=== PATIENT | male | born 1940 | race Caucasian/White ===

== ENCOUNTER 2020-07-14 15:01 | Outpatient (REF) | payer MEDICARE, SELFPAY ==
--- NOTE | ~2020-07-14 | MR_ITS ---
MRI OF THE BRAIN WITHOUT IV CONTRAST INDICATION: Parkinsonism. COMPARISON: None available. TECHNIQUE: Multiplanar multisequence MR imaging of the brain was obtained without IV contrast. FINDINGS: There is no hydrocephalus, extra-axial surface collection, or herniation. 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 The major flow voids at the skull base are preserved. There is no acute infarct on diffusion-weighted imaging. There is no intracranial hemorrhage on the gradient recalled echo acquisition. The midline structures are normal. The cerebellar tonsils are normally positioned. The craniocervical junction is normal. Osseous marrow signal intensity is homogenous. The visualized soft tissues are unremarkable. MR/MR head/brain wo con IMPRESSION: -There are no acute intracranial findings. 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
== END 2020-07-14 15:02 | disposition home or self-care (01) ==
LOC: HO.MRI 15:01
PROVIDERS: Visit Provider Psychiatry & Neurology Neurology
DX: G20 Parkinson's disease (principal)
CPT/HCPCS: 70551

== ENCOUNTER 2020-07-27 13:13 | Outpatient (REF) | payer MEDICARE, SELFPAY ==
--- NOTE | ~2020-07-27 | US_ITS ---
EXAMINATION: US EXTRACRANIAL CAROTID DUPLEX, BILATERAL CLINICAL INFORMATION: Embolic cerebral infarction. COMPARISON: None TECHNIQUE: Real-time ultrasound and Doppler techniques (integrating B-mode 2-D vascular images, Doppler spectral analysis and color-flow Doppler imaging) were utilized to interrogate the extracranial carotid arteries, the vertebral arteries and proximal subclavian arteries bilaterally. The degree of stenosis is determined by criteria similar to NASCET. FINDINGS: Right Side: 1. There is soft atherosclerotic plaque seen in the bifurcation/proximal ICA region. 2. The common carotid artery PSV proximally is 156 cm/s and distally 119 cm/s. 3. The proximal internal carotid artery velocities are 98.5 cm/s systolic and 12.9 cm/s diastolic. 4. The proximal external carotid artery PSV is 106 cm/s. 5. The vertebral artery shows antegrade flow. 6. The subclavian artery waveforms are normal. Left Side: 1. There is soft atherosclerotic plaque seen in the bifurcation/proximal ICA region. 2. The common carotid artery PSV proximally is 130 cm/s and distally 111 cm/s. 3. The proximal internal carotid artery velocities are 85.0 cm/s systolic and 14.1 cm/s diastolic. 4. The proximal external carotid artery PSV is 110 cm/s. 5. The vertebral artery shows antegrade flow. 6. The subclavian artery waveforms are normal. US/US carotid duplex BI IMPRESSION: 1. RIGHT: No hemodynamically significant stenosis. 2. LEFT: No hemodynamically significant stenosis. 3. There is minimal soft plaque seen in bilateral carotid bulb. 4. Normal antegrade flow seen in both vertebral arteries.
== END 2020-07-27 13:14 | disposition home or self-care (01) ==
LOC: HO.US 13:13
PROVIDERS: Visit Provider Psychiatry & Neurology Neurology
DX: Z86.73 Personal history of transient ischemic attack (TIA), and cerebral infarction without residual deficits (principal)
CPT/HCPCS: 93880

== ENCOUNTER → 2020-09-08 12:40 | Outpatient (REF) | payer MEDICARE, SELFPAY ==
--- NOTE | 2020-09-08 12:46 | CA_ITS ---
Transthoracic Echocardiogram Patient (Last, First, Middle): Supa Colunga, Gender: Male Date of : 1940 Age: 80 Procedure Date: 09/08/2020 Procedure Type: Transthoracic Echocardiogram Location: OP Height: 172.72 cm Weight: 68.04 kg BSA: 1.81 m2 Heart Rate: bpm BP: 117 / 60 mmHg [employer]: JEFFERSON [place] MD: Noah Cuenca MD Manager Office: Hudson Alexis MD Symptoms: EMBOLIC CEREBRAL INFARCTION Study Quality: Fair ECG Rhythm: Sinus Conclusions: - 1. Normal LV systolic function with grade 1 diastolic dysfunction 2. Trivial aortic and mitral regurgitation with mild mitral calcification 3. Normal RV systolic pressure 4. No gross pericardial effusion Findings Left Ventricle Normal left ventricular size, thickness, and systolic function. The visually estimated ejection fraction is between 60-65%. Spectral Doppler is indicative of an impaired relaxation filling pattern. E/E prime ratio is <8, consistent with normal filling pressures. Evidence suggests grade I (mild) diastolic dysfunction. Right Ventricle Normal right ventricular cavity size and systolic function. Atria The left atrium is normal in size. There is lipomatous hypertrophy of the interatrial septum. Interatrial shunt cannot be excluded. The right atrium is normal in size. Aortic Valve The aortic valve was not well visualized. There is no aortic valve stenosis. There is trace (trivial) aortic valve regurgitation. Mitral Valve There is mild anterior mitral leaflet thickening. There is mild mitral annular calcification. There is trace mitral valve regurgitation. There is no mitral valve stenosis. Pulmonic Valve The pulmonic valve was not well visualized. Tricuspid Valve Likely normal tricuspid valve structure and function. There is mild tricuspid valve regurgitation. The right ventricular systolic pressure is normal. The right ventricular systolic pressure is 33 mmHg. Normal right atrial pressure. There is no evidence of pulmonary hypertension. Great Vessels All visible segments of the aorta are normal in size. The pulmonary artery was not well visualized. Venous The inferior vena cava is normal in size and collapses greater than 50% with inspiration. Pericardium/Pleural There is no evidence of pericardial effusion. Prior Study Comparison No prior study available for comparison. Recommendations, Care & Conclusions Recommend contrast study to evaluate intracardiac shunting. Measurements 2D Linear Measurements IVSd: 0.98 0.6-0.9/0.6-1.0 cm LVIDd: 3.96 3.9-5.3/4.2-5.9 cm LVIDd Index: 2.19 2.4-3.2/2.2-3.1 cm/m2 LVIDs: 2.23 2.0-3.6 cm LVPWd: 0.89 0.7-1.1 cm Ao Root: 3.60 2.1-3.5 cm LA Diam: 2.50 2.7-3.8/3.0-4.0 cm LAIDs Index: 1.38 1.5-2.3 cm/m2 LV Mass: 141.50 67-162/88-224 g LV Mass Index: 78.18 43-95/49-115 g/m2 LVOT Diam: 2.00 3.0+(-)1.3 cm 2D Systolic Function EF 4C: 57.60 >55% EF 2C: 63.70 >55% EF BiP: 61.60 >55% Mitral Valve MV Pk E: 0.72 MV PK A: 1.22 MV Decel Time: 197.00 E/A: 0.60 E'Lateral: 8.38 E'Medial: 7.40 E/E' Med: 9.80 E/E' Lat: 8.60 PHT: 58.00 MVA PHT: 3.79 Decel Sheridan: 3.66 Aortic Valve AoV Pk Landon: 1.39 AoV Mn Landon: 0.98 AoV VTI: 0.29 AoV Pk Grad: 8.00 Aov Mn Grad: 4.00 NATALYA Cont.VTI: 2.19 LVOT LVOT Pk Landon: 1.23 LVOT Mn Landon: 0.75 LVOT VTI: 0.20 LVOT Pk Grad: 6.00 LVOT Mn Grad: 3.00 LVOT Diam: 2.00 LVOT Area: 3.14 Diastolic Function MV Pk E: 0.72 MV Pk A: 1.22 E/A: 0.60 E'Medial: 7.40 E/E' Med: 9.80 E' Laterial: 8.38 E/E' Lat: 8.60 Tricuspid Valve TR Pk Landon: 2.73 TR Pk Grad: 30.00 RA Press: 3.00 RVSP: 33.00 Great Vessels Aorta Ao Root-2D: 3.60 2.0-3.7 cm Ao Asc: 3.50 2.1-3.4 cm Ao Arch: 2.10 Updated in Other Vendor System with Status of Final Hudson Alexis MD electronically signed on 09/09/2020 1:57:30 PM with status of Final
--- NOTE | 2020-09-08 13:03 | ECG_ITS ---
Hook-up date: 2020-09-08 13:51:00 Duration: 47:59:00 Test Indications: embolic cerebral infarction Medications: [id number] QRS complexes 8 Ventricular ectopics which represent <1 % of total QRS comp. 465 Supraventricular ectopics which represent <1 % of total QRS comp. * Paced QRS complexs which represent % of total QRS comp. VENTRICULAR ECTOPY 8 Isolated 0 Bigeminal Cycles 0 Couplets 0 Runs 0 Beats in Runs * Beats LONGEST at * BPM at :: -- * Beats FASTEST at * BPM at :: -- SUPRAVENTRICULAR ECTOPY 372 Isolated 25 Couplets 12 Runs 43 Beats in Runs 6 Beats LONGEST at 122 BPM at 22:25:56 2020-09-08 3 Beats FASTEST at 136 BPM at 19:59:27 2020-09-08 HEART RATES 49 MIN at 01:51:21 2020-09-10 77 AVG 144 MAX at 08:25:44 2020-09-10 LONGEST RR 1.3440 secs at 06:29:29 2020-09-10 S-T LEVELS Channel 1 - 128 mm at 13:51:00 2020-09-08 - 128 mm at 13:51:00 2020-09-08 Channel 2 - 128 mm at 13:51:00 2020-09-08 - 128 mm at 13:51:00 2020-09-08 Channel 3 - 128 mm at 03:31:01 -- - 128 mm at 03:31:01 Basic rhythm Normal sinus rhythm No long pause or profound bradycardia Baseline IVCD/BBB Occasional Premature atrial complexes Few short bursts of SVE, probably PAT/SVT No sustained Atrial fibrillation Patient did not report any symptoms in the diary Referred By: Noah Cuenca Overread By: ANILA RICCI MD
== END ==
LOC: HO.CARD 12:40
PROVIDERS: Visit Provider Psychiatry & Neurology Neurology
DX: I63.40 Cerebral infarction due to embolism of unspecified cerebral artery (principal)
CPT/HCPCS: 93225; 93226; 93306

== ENCOUNTER 2021-04-30 08:05 | Outpatient (REF) | payer MEDICARE, SELFPAY ==
[2021-04-30 08:39] LABS: MANUAL DIFF FLAG NO
[2021-04-30 09:04] LABS: Basophils Percent Auto 0.5 % (0-2); Eosinophils Absolute Auto 0.3 X10*3/uL (0.0-0.4); Eosinophils Percent Auto 3.5 % (0-4); Hematocrit 46.4 % (42.0-52.0); Hemoglobin 14.9 g/dl (14.0-18.0); Imm Gran Abs Auto 0.02 X10*3/uL (0.00-0.03); Imm Gran Pct Auto 0.3 % (0.0-0.4); Lymphocytes Absolute Auto 1.8 X10*3/uL (1.2-4.9); Lymphocytes Percent Auto 24.5 % (20-40); Mean Corpuscular HGB Conc 32.1 g/dl (31.0-36.0); Mean Corpuscular Hemoglobin 31.9 pg (27.0-33.0); Mean Corpuscular Volume 99.4 fL (80.0-98.0); Mean Platelet Volume 10.9 fL (9.4-12.4); Monocytes Absolute Auto 0.6 X10*3/uL (0.1-1.2); Monocytes Percent Auto 7.6 % (2-11); Neutrophils Absolute Auto 4.8 x10*3/uL (2.0-8.3); Neutrophils Percent Auto 63.6 % (45-73); Platelet Count 258 X10*3/uL (160-400); Red Blood Count 4.67 X10*6/uL (4.60-5.80); White Blood Count 7.5 X10*3/uL (4.8-10.8)
[2021-04-30 09:35] LABS: Alanine Aminotransferase 16 U/L (0-40); Albumin Level 4.1 g/dL (3.5-5.0); Alkaline Phosphatase 78 U/L (39-117); Anion Gap 11 (12-20); Aspartate Amino Transferase 21 U/L (5-37); Bilirubin Total 0.9 mg/dL (0.0-1.0); Blood Urea Nitrogen 12 mg/dL (9-16); Calcium 9.2 mg/dL (8.4-10.2); Carbon Dioxide 30 mmol/L (22-29); Chloride 105 mmol/L (96-108); Cholesterol 183 mg/dL; Estimated Glomerular Filt Rate > 60; Glucose Fasting 101 mg/dL (60-99); HDL Cholesterol 58 mg/dL; LDL Cholesterol Calculated 100 mg/dl; Sodium 141 mmol/L (135-145); Total Protein 7.1 g/dL (6.5-8.0); Triglycerides 127 mg/dL
[2021-04-30 09:56] LABS: Prostate Specific Antigen Scr 2.54 ng/mL (<0.05-4.0)
== END 2021-04-30 08:06 | disposition home or self-care (01) ==
LOC: HO.LAB 08:05
PROVIDERS: PCP Internal Medicine; Visit Provider Internal Medicine
DX: I10 Essential (primary) hypertension (principal); N40.0 Benign prostatic hyperplasia without lower urinary tract symptoms; Z12.5 Encounter for screening for malignant neoplasm of prostate
CPT/HCPCS: 36415; 80053; 80061; 84153; 85025

== ENCOUNTER 2021-12-14 11:43 | Outpatient (REF) | payer MEDICARE, SELFPAY ==
[2021-12-14 13:30] LABS: MANUAL DIFF FLAG NO
[2021-12-14 13:34] LABS: White Blood Count 7.7 X10*3/uL (4.8-10.8)
[2021-12-14 13:35] LABS: Basophils Absolute Auto 0.1 X10*3/uL (0.0-0.2); Basophils Percent Auto 0.7 % (0-2); Eosinophils Absolute Auto 0.2 X10*3/uL (0.0-0.4); Hematocrit 45.9 % (42.0-52.0); Hemoglobin 14.9 g/dl (14.0-18.0); Imm Gran Abs Auto 0.02 X10*3/uL (0.00-0.03); Imm Gran Pct Auto 0.3 % (0.0-0.4); Lymphocytes Absolute Auto 1.5 X10*3/uL (1.2-4.9); Lymphocytes Percent Auto 19.9 % (20-40); Mean Corpuscular HGB Conc 32.5 g/dl (31.0-36.0); Mean Corpuscular Hemoglobin 31.2 pg (27.0-33.0); Mean Platelet Volume 10.7 fL (9.4-12.4); Monocytes Absolute Auto 0.7 X10*3/uL (0.1-1.2); Monocytes Percent Auto 8.5 % (2-11); Neutrophils Absolute Auto 5.3 x10*3/uL (2.0-8.3); Neutrophils Percent Auto 68.6 % (45-73); Platelet Count 286 X10*3/uL (160-400); Red Blood Count 4.78 X10*6/uL (4.60-5.80)
[2021-12-14 13:50] LABS: Alanine Aminotransferase 15 U/L (0-40); Albumin Level 4.2 g/dL (3.5-5.0); Alkaline Phosphatase 79 U/L (39-117); Anion Gap 13 (12-20); Aspartate Amino Transferase 20 U/L (5-37); Bilirubin Total 0.5 mg/dL (0.0-1.0); Blood Urea Nitrogen 15 mg/dL (9-16); Calcium 9.2 mg/dL (8.4-10.2); Carbon Dioxide 28 mmol/L (22-29); Chloride 103 mmol/L (96-108); Estimated Glomerular Filt Rate > 60; Glucose Random 103 mg/dL (60-115); Potassium 4.8 mmol/L (3.3-5.1); Sodium 139 mmol/L (135-145); Total Protein 7.1 g/dL (6.5-8.0)
[2021-12-14 14:56] LABS: Vitamin B12 419 pg/mL (200-900)
== END 2021-12-14 11:44 | disposition home or self-care (01) ==
LOC: HO.10HDL 11:43
PROVIDERS: Visit Provider Internal Medicine
DX: I10 Essential (primary) hypertension (principal); G20 Parkinson's disease
CPT/HCPCS: 36415; 80053; 82607; 85025

== ENCOUNTER 2021-12-25 08:04 | Outpatient (REF) | payer MEDICARE, SELFPAY ==
[2021-12-25 12:33] LABS: Appearance Urine Clear; Color Urine Yellow; Glucose Urine UA Negative (Negative); Leukocyte Esterase Urine Small (1+) (Negative); Nitrite Urine Negative (Negative); Specific Gravity - Urine 1.015 (1.005-1.025); UMIC TRIGGER UACC YES; Urine Blood Small (1+) (Negative); Urine Ketones Negative (Negative); Urine Protein Trace mg/dL (Neg-Trace)
[2021-12-25 12:36] LABS: Bacteria Urine None Seen (None Seen); Hyaline Casts Urine 0-2 /LPF (0-2); Squamous Epithelial Cell Urine 0-2 /HPF (0-2); UACC Culture Trigger YES
== END 2021-12-25 08:05 | disposition home or self-care (01) ==
LOC: HO.10HDL 08:04
PROVIDERS: Visit Provider Internal Medicine
DX: R31.9 Hematuria, unspecified (principal)
CPT/HCPCS: 81001; 87086

== ENCOUNTER 2022-01-06 10:15 | Emergency (ER) | payer MEDICARE, SELFPAY ==
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
[2022-01-06 10:42] VITALS: BP 153/86; PULSE 93; RESP 17; TEMP 35.9; O2SAT 98; BMI 21.8
[2022-01-06 11:07] VITALS: BP 139/73; PULSE 87
[2022-01-06 11:22] LABS: MANUAL DIFF FLAG NO
[2022-01-06 11:23] LABS: Basophils Absolute Auto 0.1 X10*3/uL (0.0-0.2); Basophils Percent Auto 0.6 % (0-2); Eosinophils Absolute Auto 0.2 X10*3/uL (0.0-0.4); Eosinophils Percent Auto 2.1 % (0-4); Hematocrit 47.3 % (42.0-52.0); Hemoglobin 15.3 g/dl (14.0-18.0); Imm Gran Abs Auto 0.02 X10*3/uL (0.00-0.03); Imm Gran Pct Auto 0.3 % (0.0-0.4); Lymphocytes Absolute Auto 1.9 X10*3/uL (1.2-4.9); Lymphocytes Percent Auto 23.7 % (20-40); Mean Corpuscular HGB Conc 32.3 g/dl (31.0-36.0); Mean Corpuscular Hemoglobin 31.7 pg (27.0-33.0); Mean Corpuscular Volume 97.9 fL (80.0-98.0); Mean Platelet Volume 10.4 fL (9.4-12.4); Monocytes Absolute Auto 0.7 X10*3/uL (0.1-1.2); Monocytes Percent Auto 8.6 % (2-11); Neutrophils Absolute Auto 5.1 x10*3/uL (2.0-8.3); Neutrophils Percent Auto 64.7 % (45-73); Platelet Count 289 X10*3/uL (160-400); Red Blood Count 4.83 X10*6/uL (4.60-5.80); Red Cell Distribution Width 12.8 % (11.0-16.0); White Blood Count 7.8 X10*3/uL (4.8-10.8)
--- NOTE | 2022-01-06 11:25 | ED_ITS ---
HPI - Male Genitourinary General Chief complaint: Urogenital-Male Stated complaint: Blood when urinating Time Seen by Provider: 01/06/22 10:45 Source: patient Mode of arrival: ambulatory Limitations: language barrier (Hungarian-speaking) History of Present Illness HPI Narrative: Patient is an 81-year-old male presents emergency department with his daughter for evaluation of hematuria. Of note hematuria was 1st noted approximately 1 week ago, patient's PCP was contacted, had normal blood work obtained by their report, and was found to have trace hematuria. Reports that he no longer noticed blood in the urine after this point. Today, the blood in the urine reappeared, and reports the presence of clots. Denies fevers, chills, chest pain, shortness of breath, alternative sources of bleeding, nausea, vomiting, abdominal pain, suprapubic pain/pressure, dysuria, urinary frequency/urgency/hesitancy, rectal bleeding, bloody/dark stools. He does and dorsum mild diffuse lower back discomfort which is new. Denies any prior history of kidney stones. Denies anticoagulant usage. Related Data Allergies Allergy/AdvReac Type Severity Reaction Status Date / Time No Known Allergies Allergy Verified 01/06/22 11:05 Review of Systems Review of Systems: Constitutional: No weight loss, fever, chills, weakness or fatigue. Skin: No rash or itching. Cardiovascular: No chest pain, chest pressure or chest discomfort. No palpitations or pedal edema. Respiratory: No shortness of breath, cough or sputum production. Gastrointestinal: No anorexia, nausea, vomiting or diarrhea. No abdominal pain or blood in stool. Genitourinary: Positive hematuria No burning micturition. No urinary frequency or incontinence. Musculoskeletal: Positive back pain. No muscle pain, joint pain or stiffness. Psychiatric: No depression or anxiety. Yes all other systems are reviewed and are negative PMFSH Past Medical History Attestation statement: The following information was validated with the patient. Source: old records reviewed Social History Social History Advance Directives: Yes Advance Directives Information Provided: Yes Advance Directives on File: No Physical Exam Vital Signs: Vital Signs: Last Vital Signs Temp 96.6 F L 01/06/22 10:42 Pulse 87 01/06/22 11:07 Resp 17 01/06/22 10:42 BP 139/73 01/06/22 11:07 Pulse Ox 98 01/06/22 10:42 O2 Del Method 01/06/22 10:42 BMI result Body Mass Index 21.8 Appearance: Alert.?Oriented to person, place and time. No acute distress.?Normal affect. Eyes: Pupils equal, round and reactive to light.? ENT: Pharynx normal.?? Neck: Normal inspection.? Neck supple.?? CVS: Heart sounds normal. Normal heart rate and rhythm.? Pulses normal.?? Respiratory: No respiratory distress.? Lung sounds clear to auscultation bilaterally?? Abdomen: Soft and non-tender. Normoactive bowel sounds. No CVA tenderness? Skin: Skin warm and dry.? Normal skin color.? ?? Extremities: No lower extremity edema.? Neuro: Moves all extremities spontaneously. Sensation intact bilaterally. No focal neuro deficits. Ambulates with normal steady gait. Course Course Course Narrative: Patient is an 81-year-old male with a past medical history of hypertension, Parkinson's who presents emergency department for evaluation of hematuria. He is overall well-appearing. At the time of examination he has a benign abdominal exam without CVA tenderness. Will obtain CBC to evaluate for leukocytosis/ anemia, CMP to evaluate for abnormal electrolytes /abnormal renal function/ abnormal hepatic function, CT of the abdomen and pelvis to evaluate for nephro lithiasis, hydronephrosis, pyelonephritis and Urinalysis. Reevaluation(s) Reevaluation #1: CBC is unremarkable, no evidence of anemia or leukocytosis. CMP is unremarkable, normal renal function. Urinalysis with 3+ blood, trace pyuria, no bacteria seen, does not appear consistent with urinary tract infection at this time. CT reveals no acute abnormalities, there are small bilateral renal stones measuring 0.3 cm without evidence of hydroureternephrosis. At this time suspect this to be the etiology for hematuria, however, cannot completely exclude possibility of bladder cancer which I did discuss with patient and daughter.Advised outpatient follow-up with primary care provider as well as Urology within the next week, given the size these stones they are likely to remain or pass without complication. Reviewed worrisome signs and symptoms to return back to the emergency department for. All questions were answered, patient discharged home in stable condition. Time: 13:05 [facility] - Male Genitourinary Medical Records Attestation: I reviewed the patient's medical records. Lab Data Attestation: I reviewed the patient's lab results. Result diagrams: 01/06/22 11:19 01/06/22 11:19 Labs: Lab Results 01/06/22 01/06/22 01/06/22 Range/Units 11:19 11:19 11:19 WBC 7.8 (4.8-10.8) X10*3/uL RBC 4.83 (4.60-5.80) X10*6/uL Hgb 15.3 (14.0-18.0) g/dl Hct 47.3 (42.0-52.0) % MCV 97.9 (80.0-98.0) fL MCH 31.7 (27.0-33.0) pg MCHC 32.3 (31.0-36.0) g/dl RDW 12.8 (11.0-16.0) % Plt Count 289 (160-400) X10*3/uL MPV 10.4 (9.4-12.4) fL Immature Gran % (Auto) 0.3 (0.0-0.4) % Neut % (Auto) 64.7 (45-73) % Lymph % (Auto) 23.7 (20-40) % Bibb % (Auto) 8.6 (2-11) % Eos % (Auto) 2.1 (0-4) % Baso % (Auto) 0.6 (0-2) % Lymph # (Auto) 1.9 (1.2-4.9) X10*3/uL Bibb # (Auto) 0.7 (0.1-1.2) X10*3/uL Eos # (Auto) 0.2 (0.0-0.4) X10*3/uL Baso # (Auto) 0.1 (0.0-0.2) X10*3/uL Abs Immat Gran (auto) 0.02 (0.00-0.03) X10*3/uL Absolute Neuts (auto) 5.1 (2.0-8.3) x10*3/uL Absolute Nucleated RBC 0.000 (0.0-0.012) X10*3/uL Nucleated RBC % (auto) 0.0 (0.0-0.2) /100WBC Sodium 141 (135-145) mmol/L Potassium 4.8 (3.3-5.1) mmol/L Chloride 103 (96-108) mmol/L Carbon Dioxide 28 (22-29) mmol/L Anion Gap 15 (12-20) BUN 14 (9-16) mg/dL Creatinine 0.92 (0.5-1.4) mg/dL Estim Creat Clear Calc 57.7 Estimated GFR > 60 Random Glucose 106 (60-115) mg/dL Calcium 9.3 (8.4-10.2) mg/dL Total Bilirubin 0.8 (0.0-1.0) mg/dL AST 23 (5-37) U/L ALT 19 (0-40) U/L Alkaline Phosphatase 79 (39-117) U/L Total Protein 7.5 (6.5-8.0) g/dL Albumin 4.4 (3.5-5.0) g/dL Urine Color Urine Appearance Urine pH (5.0-9.0) Ur Specific [place] (1.005-1.025) Urine Protein (Neg-Trace) mg/dL Urine Glucose (UA) (Negative) mg/dL Urine Ketones (Negative) mg/dL Urine Blood (Negative) Urine Nitrite (Negative) Ur Leukocyte Esterase (Negative) Urine RBC (0-2) /HPF Urine WBC (0-5) /HPF Ur Squamous Epith Cells (0-2) /HPF Urine Bacteria (None Seen) Hyaline Casts (0-2) /LPF Blood Type O Negative Antibody Screen NEGATIVE 01/06/22 Range/Units 11:21 WBC (4.8-10.8) X10*3/uL RBC (4.60-5.80) X10*6/uL Hgb (14.0-18.0) g/dl Hct (42.0-52.0) % MCV (80.0-98.0) fL MCH (27.0-33.0) pg MCHC (31.0-36.0) g/dl RDW (11.0-16.0) % Plt Count (160-400) X10*3/uL MPV (9.4-12.4) fL Immature Gran % (Auto) (0.0-0.4) % Neut % (Auto) (45-73) % Lymph % (Auto) (20-40) % Bibb % (Auto) (2-11) % Eos % (Auto) (0-4) % Baso % (Auto) (0-2) % Lymph # (Auto) (1.2-4.9) X10*3/uL Bibb # (Auto) (0.1-1.2) X10*3/uL Eos # (Auto) (0.0-0.4) X10*3/uL Baso # (Auto) (0.0-0.2) X10*3/uL Abs Immat Gran (auto) (0.00-0.03) X10*3/uL Absolute Neuts (auto) (2.0-8.3) x10*3/uL Absolute Nucleated RBC (0.0-0.012) X10*3/uL Nucleated RBC % (auto) (0.0-0.2) /100WBC Sodium (135-145) mmol/L Potassium (3.3-5.1) mmol/L Chloride (96-108) mmol/L Carbon Dioxide (22-29) mmol/L Anion Gap (12-20) BUN (9-16) mg/dL Creatinine (0.5-1.4) mg/dL Estim Creat Clear Calc Estimated GFR Random Glucose (60-115) mg/dL Calcium (8.4-10.2) mg/dL Total Bilirubin (0.0-1.0) mg/dL AST (5-37) U/L ALT (0-40) U/L Alkaline Phosphatase (39-117) U/L Total Protein (6.5-8.0) g/dL Albumin (3.5-5.0) g/dL Urine Color Red A Urine Appearance Clear Urine pH 7.0 (5.0-9.0) Ur Specific [place] 1.015 (1.005-1.025) Urine Protein Trace (Neg-Trace) mg/dL Urine Glucose (UA) Negative (Negative) mg/dL Urine Ketones Negative (Negative) mg/dL Urine Blood Large (3+) H (Negative) Urine Nitrite Negative (Negative) Ur Leukocyte Esterase Trace H (Negative) Urine RBC >20 H (0-2) /HPF Urine WBC 0-5 (0-5) /HPF Ur Squamous Epith Cells 0-2 (0-2) /HPF Urine Bacteria None Seen (None Seen) Hyaline Casts 0-2 (0-2) /LPF Blood Type Antibody Screen Discharge Plan Discharge Clinical Impression: Hematuria, Bilateral renal stones Patient Disposition: Home, Self-Care Instructions: Kidney Stones (ED), Hematuria (ED) Additional Instructions: As we discussed, there is no evidence for urinary tract infection at this time. You were found to have kidney stones, based on their size they should be able to be passed without complication. We also discussed the possibility of bladder cancer as a cause for blood in the urine, please contact the urology office to arrange for a follow-up visit within the next week, you have been given their contact information Additionally, please follow-up with primary care provider within the next week. Return back to the emergency department with any new or worsening symptoms or concerns. Referrals: Jeremie Finley MD [Physician] - Vini Borges MD [Primary Care Provider] - Interventions: ED Discharge Assessment Last Done: 01/06/22 13:22 Discharge Date/Time: 01/06/22 13:26
[2022-01-06 11:35] LABS: Appearance Urine Clear; Color Urine Red; Glucose Urine UA Negative (Negative); Leukocyte Esterase Urine Trace (Negative); Nitrite Urine Negative (Negative); Specific Gravity - Urine 1.015 (1.005-1.025); UMIC TRIGGER UACC YES; Urine Blood Large (3+) (Negative); Urine Ketones Negative (Negative); Urine Protein Trace mg/dL (Neg-Trace)
[2022-01-06 11:38] LABS: Bacteria Urine None Seen (None Seen); Hyaline Casts Urine 0-2 /LPF (0-2); RBC Urine >20 /HPF (0-2); Squamous Epithelial Cell Urine 0-2 /HPF (0-2); WBC Urine 0-5 /HPF (0-5)
[2022-01-06 11:43] LABS: Alanine Aminotransferase 19 U/L (0-40); Albumin Level 4.4 g/dL (3.5-5.0); Alkaline Phosphatase 79 U/L (39-117); Anion Gap 15 (12-20); Aspartate Amino Transferase 23 U/L (5-37); Bilirubin Total 0.8 mg/dL (0.0-1.0); Blood Urea Nitrogen 14 mg/dL (9-16); Calcium 9.3 mg/dL (8.4-10.2); Carbon Dioxide 28 mmol/L (22-29); Chloride 103 mmol/L (96-108); Creatinine Clr Calc Pharmacy 57.7; Estimated Glomerular Filt Rate > 60; Glucose Random 106 mg/dL (60-115); Potassium 4.8 mmol/L (3.3-5.1); Sodium 141 mmol/L (135-145); Total Protein 7.5 g/dL (6.5-8.0)
== END 2022-01-06 13:26 | disposition home or self-care (01) ==
PROVIDERS: Nurse Practitioner Family; Emergency Provider Emergency Medicine; PCP Internal Medicine
DX: R31.9 Hematuria, unspecified (principal); N20.0 Calculus of kidney; M54.50 Low back pain, unspecified
CPT/HCPCS: 36415; 74176; 80053; 81001; 85025; 86850; 86900; 86901; 99283; 99284

== ENCOUNTER → 2022-01-28 15:25 | Outpatient (BNVA) | payer MEDICARE, SELFPAY | PROVIDERS: PCP Internal Medicine; Visit Provider Urology | DX: R31.0 Gross hematuria (principal); N40.0 Benign prostatic hyperplasia without lower urinary tract symptoms | CPT/HCPCS: 99202 ==

== ENCOUNTER → 2022-02-05 12:43 | Outpatient (BNVA) | payer MEDICARE, SELFPAY | PROVIDERS: PCP Internal Medicine; Visit Provider Urology | DX: R31.0 Gross hematuria (principal); N40.0 Benign prostatic hyperplasia without lower urinary tract symptoms; N20.0 Calculus of kidney | CPT/HCPCS: 52000; 99212; J1885 ==

== ENCOUNTER 2022-05-28 17:32 | Emergency (ER) | payer MEDICARE, SELFPAY ==
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
--- NOTE | ~2022-05-28 | XR_ITS ---
EXAMINATION: XR CHEST CLINICAL INFORMATION: Fall COMPARISON: None available. TECHNIQUE: Frontal view of the chest was obtained. FINDINGS: No consolidation, pneumothorax, or pleural effusion. Cardiac and mediastinal contours are normal. Pulmonary vasculature is unremarkable. Calcific atherosclerosis is present in the thoracic aorta. Degenerative disc disease is evident in the thoracic spine. No acute osseous findings. XR/XR chest 1V IMPRESSION: No acute pulmonary findings.
--- NOTE | ~2022-05-28 | CT_ITS ---
EXAMINATION: CT HEAD WITHOUT CONTRAST CLINICAL INFORMATION: Fall one week prior. Off balance. COMPARISON: 07/14/2020 TECHNIQUE: Contiguous axial imaging was performed from the skull base to vertex without intravenous contrast. This CT examination was performed using dose optimization techniques as appropriate, variously including the following: * Automated exposure control * Adjustment of mA and/or kV according to patient size (this includes techniques or standardized protocols for targeted exams where dose is matched to indication/reason for exam; i.e. extremities or head) Use of iterative reconstruction technique DLP: 604 mGy-cm. FINDINGS: There is no evidence of acute intracranial hemorrhage or territorial infarction. No abnormal mass effect or midline shift is seen. Burt to white matter differentiation is well preserved. No extra-axial fluid collections are identified. No hydrocephalus. Proportional prominence of the ventricles and sulcal spaces is consistent with moderate volume loss. Patchy periventricular and deep white matter hypoattenuation is consistent with mild small vessel ischemic changes. 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 No acute osseous or soft tissue abnormality. Lucent lesion measuring 2 cm at the high left parietal calvarium. The mastoid air cells and visualized portions of the paranasal sinuses are well aerated. CT/CT head/brain wo IV con IMPRESSION: 1. No acute intracranial pathology. Chronic volume loss with small vessel ischemic change. 2. Lucent lesion measuring 2 cm at the high left parietal calvarium. This is likely without change from previous MRI.
--- NOTE | ~2022-05-28 | CT_ITS ---
EXAMINATION: CT HIP WITHOUT CONTRAST, RIGHT CLINICAL INFORMATION: Right hip pain. Rule out occult fracture. COMPARISON: 05/28/2022 and 01/06/2022 TECHNIQUE: Multidetector volumetric imaging of the right hip performed without IV contrast. Coronal and sagittal reformatted images are obtained and reviewed. This CT examination was performed using dose optimization techniques as appropriate, variously including the following: *Automated exposure control *Adjustment of mA and/or kV according to patient size (this includes techniques or standardized protocols for targeted exams where dose is matched to indication/reason for exam; i.e. extremities or head) *Use of iterative reconstruction technique DLP: 226 mGy-cm FINDINGS: No acute fracture or dislocation. The right hip is well aligned. Mild narrowing of the joint space with osteophyte formation. There is no acute right pelvic fracture. Appropriate alignment of the pubic symphysis and right sacroiliac joint. There is evidence of a healed right iliac bone fracture with residual ossific gap within the iliac wing. This is chronic. There is full appearance of the right iliopsoas muscle as it tracks along the right iliac bone. This is increased from 01/06/2022. This could be provider service representative of a hematoma. Distended bladder without wall thickening. Enlarged prostate. No lymphadenopathy. CT/CT hip RT wo IV con IMPRESSION: 1. No acute fracture or malalignment. Mild degenerative changes of the right hip. 2. There is full appearance of the right iliopsoas muscle as it tracks along the right iliac bone. This is increased from 01/06/2022. This could be provider service representative of a hematoma.
[2022-05-28 18:44] VITALS: BP 142/83; PULSE 94; RESP 19; TEMP 37.4; O2SAT 98; BMI 21.2
--- NOTE | 2022-05-28 18:47 | ED_ITS ---
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 previous MRI. Dictated By:Thierry Steven MDSigned By:<Electronically signed by Thierry Steven MD in OV>05/28/222326 CT hip RT wo IV con IMPRESSION: 1. No acute fracture or malalignment. Mild degenerative changes of the right hip. 2. There is full appearance of the right iliopsoas muscle as it tracks along the right iliac bone. This is increased from 01/06/2022. This could be insurance healthcare representative of a hematoma. Dictated By:Thierry Steven MD <Nilson Curiel MD - Last Filed: 05/29/22 00:03> Discharge Plan Discharge Clinical Impression: Hematoma of iliopsoas muscle <SHANTANU Green - Last Filed: 05/28/22 18:52> Patient Disposition: Home, Self-Care <SHANTANU Green - Last Filed: 05/28/22 18:52> Instructions: Hematoma (ED) <SHANTANU Green - Last Filed: 05/28/22 18:52> Additional Instructions: Your blood work was normal. Your urinalysis was normal with no evidence for infection. Your COVID-19 and influenza were negative. The x-ray of your right hip and pelvis revealed no broken bone/acute fracture. The CT scan of your brain revealed no acute findings to explain your off balance problem. The CT scan of your hip revealed no hip fracture however you do have a hematoma to the iliopsoas muscle (your blood into this muscle), this is most likely caused by using the exercise bike cannot by you lying on the floor. It sometimes takes 4-6 weeks for a hematoma to heal completely. Use your walker for the next 2-4 weeks as discussed. Take Tylenol (acetaminophen) 500 mg pills, 2 pills every 6 hours as needed for pain. Follow-up with your doctor in 2 days. Please return to the emergency department if your symptoms get worse or if you develop any symptoms that are concerning to you. <SHANTANU Green - Last Filed: 05/28/22 18:52> Prescriptions: No Action enalapril maleate 10 mg tablet 10 mg PO DAILY carbidopa-levodopa 25-100 mg tablet 1 tab PO TID dutasteride-tamsulosin [Jaclyn] 0.5-0.4 mg capsule, ER multiphase 24 hr 1 cap PO DAILY Qty: 90 3RF <SHANTANU Green - Last Filed: 05/28/22 18:52>
--- NOTE | 2022-05-28 18:49 | ECG_ITS ---
Test Reason : WEAKNESS Blood Pressure : / mmHG Vent. Rate : 086 BPM Atrial Rate : 086 BPM P-R Int : 138 ms QRS Dur : 122 ms QT Int : 366 ms P-R-T Axes : 078 -58 081 degrees QTc Int : 437 ms Normal sinus rhythm Left anterior fascicular block Left ventricular hypertrophy with QRS widening and repolarization abnormality ( R in aVL , Roberto Carlos product ) Abnormal ECG No previous ECGs available Referred By: Kaur Quinones Electronically Signed By:ANILA RICCI MD
[2022-05-28 19:40] LABS: MANUAL DIFF FLAG NO
[2022-05-28 19:41] LABS: Basophils Absolute Auto 0.1 X10*3/uL (0.0-0.2); Basophils Percent Auto 0.3 % (0-2); Eosinophils Absolute Auto 0.1 X10*3/uL (0.0-0.4); Eosinophils Percent Auto 0.7 % (0-4); Hemoglobin 13.3 g/dl (14.0-18.0); Imm Gran Pct Auto 0.6 % (0.0-0.4); Lymphocytes Absolute Auto 1.9 X10*3/uL (1.2-4.9); Mean Corpuscular HGB Conc 32.4 g/dl (31.0-36.0); Mean Corpuscular Volume 95.6 fL (80.0-98.0); Mean Platelet Volume 9.6 fL (9.4-12.4); Monocytes Absolute Auto 1.2 X10*3/uL (0.1-1.2); Monocytes Percent Auto 6.9 % (2-11); Neutrophils Absolute Auto 14.1 x10*3/uL (2.0-8.3); Neutrophils Percent Auto 80.5 % (45-73); Platelet Count 535 X10*3/uL (160-400); Red Blood Count 4.29 X10*6/uL (4.60-5.80); White Blood Count 17.5 X10*3/uL (4.8-10.8)
[2022-05-28 19:57] LABS: IDNOW Serial# BCCEAD1C; Influenza A Negative (Negative); Influenza B2 Negative (Negative)
[2022-05-28 19:58] LABS: COVID-19 Test Negative (Negative); IDNOW Serial# 08D9AD1C
[2022-05-28 20:06] LABS: Lactic Acid 1.1 mmol/L (0.5-2.0)
[2022-05-28 20:10] LABS: Alanine Aminotransferase 6 U/L (0-40); Albumin Level 3.5 g/dL (3.5-5.0); Alkaline Phosphatase 69 U/L (39-117); Anion Gap 15 (12-20); Aspartate Amino Transferase 18 U/L (5-37); Bilirubin Total 0.6 mg/dL (0.0-1.0); Blood Urea Nitrogen 17 mg/dL (9-16); Calcium 8.8 mg/dL (8.4-10.2); Carbon Dioxide 25 mmol/L (22-29); Chloride 99 mmol/L (96-108); Creatinine Clr Calc Pharmacy 54.4; Estimated Glomerular Filt Rate > 60; Glucose Random 107 mg/dL (60-115); Magnesium 2.2 mg/dL (1.6-2.6); Potassium 4.6 mmol/L (3.3-5.1); Sodium 134 mmol/L (135-145); Total Protein 6.9 g/dL (6.5-8.0)
[2022-05-28 20:16] LABS: B Type Natriuretic Peptide 36 pg/mL (<100)
[2022-05-28 20:17] LABS: Troponin-I High Sensitivity < 3.5 ng/L (<3.5-35.0)
[2022-05-28 21:15] VITALS: BP 127/58; PULSE 96; RESP 17; TEMP 36.4; O2SAT 95
[2022-05-28] MEDS: 0.9 % Sodium Chloride 1,000 ML 999 ML IV (21:39)
[2022-05-28 22:45] LABS: Appearance Urine Clear; Color Urine Yellow; Glucose Urine UA Negative (Negative); Leukocyte Esterase Urine Negative (Negative); Nitrite Urine Negative (Negative); PH 6.5 (5.0-9.0); Specific Gravity - Urine <= 1.005 (1.005-1.025); UMIC TRIGGER UACC YES; Urine Blood Small (1+) (Negative); Urine Ketones Negative (Negative); Urine Protein Negative (Neg-Trace)
[2022-05-28 22:58] LABS: Bacteria Urine None Seen (None Seen); Hyaline Casts Urine 0-2 /LPF (0-2); RBC Urine 0-2 /HPF (0-2); Squamous Epithelial Cell Urine 0-2 /HPF (0-2); WBC Urine 0-5 /HPF (0-5)
== END 2022-05-29 00:38 | disposition home or self-care (01) ==
PROVIDERS: Physician Assistant; Emergency Provider Emergency Medicine Emergency Medical Services; PCP Internal Medicine
DX: R31.9 Hematuria, unspecified (principal); R53.1 Weakness; R06.02 Shortness of breath; R26.2 Difficulty in walking, not elsewhere classified; R50.9 Fever, unspecified; M25.551 Pain in right hip; R51.9 Headache, unspecified; Z20.822 Contact with and (suspected) exposure to COVID-19; Z20.828 Contact with and (suspected) exposure to other viral communicable diseases; Z79.899 Other long term (current) drug therapy
CPT/HCPCS: 70450; 71045; 73502; 73700; 80053; 81001; 82550; 83605; 83735; 83880; 84484; 85025; 87040; 87502; 87635; 93005; 96360; 96361; 99284

== ENCOUNTER 2022-06-13 14:37 | Outpatient (REF) | payer MEDICARE, SELFPAY | END 2022-06-13 14:38 | disposition home or self-care (01) | LOC: HO.LAB 14:37 | PROVIDERS: PCP Internal Medicine; Visit Provider Urology | DX: R31.0 Gross hematuria (principal); N40.0 Benign prostatic hyperplasia without lower urinary tract symptoms; N20.0 Calculus of kidney | CPT/HCPCS: 51798; 88121; 99212 ==

== ENCOUNTER 2022-08-16 10:05 | Outpatient (REF) | payer MEDICARE, SELFPAY ==
--- NOTE | ~2022-08-16 | XR_ITS ---
EXAMINATION: XR CHEST CLINICAL INFORMATION: Hypertension. Weight loss. COMPARISON: Previous chest x-ray May 2022 TECHNIQUE: 2 views of the chest were obtained. FINDINGS: The cardiac and mediastinal contours are normal. The lungs are are. The lungs are well-inflated suggestive of COPD. No pleural effusion or pneumothorax. Degenerative changes of the spine. XR/XR chest 2V IMPRESSION: Well-inflated lungs. No evidence for acute disease in the chest.
[2022-08-16 10:26] LABS: MANUAL DIFF FLAG NO
[2022-08-16 10:55] LABS: Appearance Urine Clear; Color Urine Yellow; Glucose Urine UA Negative (Negative); Leukocyte Esterase Urine Negative (Negative); Nitrite Urine Negative (Negative); Specific Gravity - Urine 1.015 (1.005-1.025); UMIC TRIGGER UA YES; Urine Blood Small (1+) (Negative); Urine Ketones Negative (Negative); Urine Protein Negative (Neg-Trace)
[2022-08-16 10:56] LABS: Basophils Absolute Auto 0.1 X10*3/uL (0.0-0.2); Basophils Percent Auto 0.7 % (0-2); Eosinophils Absolute Auto 0.2 X10*3/uL (0.0-0.4); Eosinophils Percent Auto 2.7 % (0-4); Hemoglobin 14.4 g/dl (14.0-18.0); Imm Gran Abs Auto 0.02 X10*3/uL (0.00-0.03); Imm Gran Pct Auto 0.3 % (0.0-0.4); Lymphocytes Absolute Auto 1.6 X10*3/uL (1.2-4.9); Lymphocytes Percent Auto 22.9 % (20-40); Mean Corpuscular Hemoglobin 31.6 pg (27.0-33.0); Mean Corpuscular Volume 98.9 fL (80.0-98.0); Monocytes Absolute Auto 0.5 X10*3/uL (0.1-1.2); Neutrophils Absolute Auto 4.4 x10*3/uL (2.0-8.3); Neutrophils Percent Auto 65.4 % (45-73); Platelet Count 265 X10*3/uL (160-400); Red Blood Count 4.55 X10*6/uL (4.60-5.80); Red Cell Distribution Width 13.9 % (11.0-16.0); White Blood Count 6.8 X10*3/uL (4.8-10.8)
[2022-08-16 11:02] LABS: Bacteria Urine None Seen (None Seen); Hyaline Casts Urine 0-2 /LPF (0-2); Squamous Epithelial Cell Urine 0-2 /HPF (0-2); WBC Urine 0-5 /HPF (0-5)
[2022-08-16 11:21] LABS: Alanine Aminotransferase 17 U/L (0-40); Albumin Level 4.1 g/dL (3.5-5.0); Alkaline Phosphatase 87 U/L (39-117); Anion Gap 11 (12-20); Aspartate Amino Transferase 20 U/L (5-37); Bilirubin Total 0.9 mg/dL (0.0-1.0); Blood Urea Nitrogen 14 mg/dL (9-16); Calcium 9.3 mg/dL (8.4-10.2); Carbon Dioxide 29 mmol/L (22-29); Chloride 105 mmol/L (96-108); Cholesterol 176 mg/dL; Estimated Glomerular Filt Rate > 60; Glucose Random 104 mg/dL (60-115); Potassium 4.9 mmol/L (3.3-5.1); Sodium 140 mmol/L (135-145); Total Protein 7.2 g/dL (6.5-8.0)
== END 2022-08-16 10:06 | disposition home or self-care (01) ==
LOC: HO.LAB 10:05
PROVIDERS: PCP Internal Medicine; Visit Provider Internal Medicine
DX: I10 Essential (primary) hypertension (principal); R63.4 Abnormal weight loss; J98.4 Other disorders of lung
CPT/HCPCS: 36415; 71046; 80053; 81001; 82465; 85025

== ENCOUNTER 2022-11-14 08:21 | Outpatient (REF) | payer MEDICARE, SELFPAY ==
[2022-11-14 12:36] LABS: PSA,Total (Free>4and<10) 1.48 ng/mL (0.00-4.00)
== END 2022-11-14 08:22 | disposition home or self-care (01) ==
LOC: HO.10HDL 08:21
PROVIDERS: Visit Provider Urology
DX: Z12.5 Encounter for screening for malignant neoplasm of prostate (principal); N40.0 Benign prostatic hyperplasia without lower urinary tract symptoms
CPT/HCPCS: 36415; 84153; 88121

== ENCOUNTER 2022-11-20 09:55 | Outpatient (AMB) | payer MEDICARE, SELFPAY ==
[2022-11-20 10:02] VITALS: BMI 21.3
--- NOTE | 2022-11-20 10:02 | MHC.OFFVIS ---
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 States he has had this bump on his IP joint for approx 1 yr now. No injury he can recall. Patient states this cause him no pain or discomfort. Patient has noticed it has increase in size and would like to discuss removal of bump. Denies numbness, tingling or locking of fingers. 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 He has had a cyst on his IP joint for about a year now. He denies any injury. He has no pain or discomfort. He has noticed it has increased in size but has been steady recently. He denies any numbness or paresthesia. He states that the cyst was never ruptured or drained in the past. [facility] Social History (Updated 11/20/22 @ 10:09 by ELIZA Burden) Current occupational status: disabled Current occupation: rt hand Review of Systems Const All systems reviewed & are unremarkable except as noted in HPI and below Physical Exam Vital Signs: BMI result Body Mass Index 21.3 Const General: cooperative, healthy appearing and no acute distress Orientation/consciousness: patient oriented x3 HEENT Head: Yes normocephalic and Yes atraumatic Eyes EOM: EOMs intact bilaterally Resp Effort & Inspection: normal respiratory effort and able to speak in complete sentences Cardio Jugular venous distension: no JVD Skin General skin exam: turgor normal, ecchymosis (No) and erythema (No) Rashes: no rashes Trauma: no lacerations or abrasions Neuro Other: Vascular: Cap refill brisk General: patient oriented x3 Extrem Other: Evaluation of right Upper Extremity: Neuro: Median, ulnar, radial nerves motor and sensory grossly intact. Vascular: Cap refill brisk. ROM: Can bring fingers closed to a fist and back out to full or nearly full extension. No locking or catching Skin: No lacerations or abrasions. General: No eccymosis. No erythema or evidence of infection. Has a fairly large mucous cyst, measuring about 1.5 cm in diameter, across the dorsal aspect of his right thumb distal phalanx and IP joint. Appears to be fluid filled. No surrounding erythema, no drainage. The area is not particularly tender. Good active range of motion of the thumb including the IP joint. Psych Appearance: grossly normal Affect: normal affect Attitude: cooperative Assessment & Plan Assessment & Plan (1) Mucous cyst of digit of right hand: Code(s): M67.441 - Ganglion, right hand Plan 1. 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 I educated the patient and his daughter about this condition We discussed operative and non-operative treatment options. I am recommending surgery and he wishes to proceed with surgery. The risks and benefits of operative treatment were discussed with the patient and the patient wishes to proceed with surgery. These risks include, but are not limited to risk of damage to blood vessels, nerves, tendons, infection, recurrence, incomplete relief of preoperative symptoms, persistent pain, possible need for further surgery and the risks associated with regional blocks and anesthesia. The plan is to take the patient to the operating room sometime in the next few weeks for the following procedures: 1. Right thumb mucous cyst excision under local. All of the preoperative paperwork including the consent was filled out today. All the patient's questions were answered. The patient understands that they will be contacted by our crew scheduler soon to schedule this procedure Scribed for Dr. Amanda Molina by Jr Patel, director of medical review, on 11/20/2022. I, Dr. Amanda Molina, have personally reviewed and agree with the information entered by the scribe. Coding Level of Care Code New Pt Level 4 (71050) Diagnoses Mucous cyst of digit of right hand M67.441
== END 2022-11-20 10:23 | disposition home or self-care (01) ==
PROVIDERS: PCP Internal Medicine; Visit Provider Orthopaedic Surgery
DX: M67.441 Ganglion, right hand (principal)
CPT/HCPCS: 99204

== ENCOUNTER → 2022-11-20 09:55 | Outpatient (BNVA) | payer MEDICARE, SELFPAY | PROVIDERS: PCP Internal Medicine; Visit Provider Orthopaedic Surgery ==

== ENCOUNTER 2022-12-26 08:08 | Outpatient (AMB) | payer MEDICARE, SELFPAY ==
--- NOTE | 2022-12-26 08:12 | A.OFFVIS_ITS ---
Intake Intake Visit Reasons: 6m/labs/hematuria Intake Note: Patient presents today for a follow-up on Hematuria, Labs Results: Meds- None Allergies to Antibiotic- No Known Allergies Blood Thinner- None PSA- 1.48 ng/mL 11/14/2022 Worm Grower Required: No Accompanied by: Self / Same As Patient Allergies No Known Allergies Allergy (Verified 01/07/23 15:20) HPI HPI Comments History of Present Illness Details Supa is an 82-year-old male who presents today to the office for a follow-up. 12/26/22? He is followed today for hematuria. He prior cysto, 01/2022 which was wnL, Jaclyn was started at that time. He was last seen by me on 06/13/22 for BPH. He is presents with his daughter. He states that he gets up 3 times at night to urinate. He denies any dysuria, or gross hematuria. The patient has been compliant with his meds daily Jaclyn 04 mg. In review of his chart he does have right kidney stone 3 mm noted on prior CAT scan imaging. I have discussed AUA guidelines recommendations for PSA screening. I reviewed the PSA results from 11/14/22 revealed 1.48. Review of charts: office cystoscopy on 02/05/22 which was negative for suspicious bladder lesion.? 06/13/22--JEFFRY: Prostate exam: Prostate was enlarged, no hard, irregular areas palpated.? 12/26/22: Evaluation today?UA?Leukocyte: negative; blood: 1 +. 12/26/22: Plan: Continue jayln Monitor right kidney stone Renal US in 6 months. Will hold on PSA screening based on AUA guidelines. [facility] Social History Current occupational status: disabled Current occupation: rt hand Review of Systems Const All systems reviewed & are unremarkable except as noted in HPI and below Reports no additional complaints Eyes Reports no additional complaints ENT Denies neck pain Card Denies leg edema Resp Denies cough GI Denies constipation Musc Reports no additional complaints and Denies neck pain Skin/Breast Denies rash and Denies unusual bruising Neuro Reports no additional complaints Psych Reports no additional complaints Endo Reports no additional complaints Mikey/Lymph Reports no additional complaints Aller/Immun Reports no additional complaints Physical Exam Const General: healthy appearing, no acute distress and well developed Orientation/consciousness: patient oriented x3 HEENT Head: Yes normocephalic and Yes atraumatic Eyes Conjunctivae: conjunctivae normal Neck Neck: Yes normal visual inspection Chest Chest palpation & inspection: normal inspection of the chest Resp Effort & Inspection: normal respiratory effort Cardio Rate: regular rate GI Inspection: Yes normal to inspection Palpation (GI): Soft to palpation Skin General skin exam: no rashes or lesions noted Neuro General: patient oriented x3 Extrem General: No pedal edema Psych Appearance: grossly normal Affect: normal affect Results AMB Urinalysis, Automated UA Leukoctes 0 Sage/uL Last Edit by JOYCELYN Herrera on 12/26/22 08:40 UA Nitrite Negative Last Edit by JOYCELYN Herrera on 12/26/22 08:40 UA Urobilinogen 0.2 mg/dL Last Edit by JOYCELYN Herrera on 12/26/22 08:4 0 UA Protein 0 mg/dL Last Edit by JOYCELYN Herrera on 12/26/22 08:40 UA pH 6.5 Last Edit by JOYCELYN Herrera on 12/26/22 08:40 UA Blood 25 Hector/uL Last Edit by JOYCELYN Herrera on 12/26/22 08:40 1+ Denzel Avery 12/26/22 08:40 UA Specific Coram 1.015 Last Edit by JOYCELYN Herrera on 12/26/22 08: 40 UA Ketone Negative Last Edit by JOYCELYN Herrera on 12/26/22 08:40 UA Bilirubin 0 mg/dL Last Edit by JOYCELYN Herrera on 12/26/22 08:40 UA Glucose 0 mg/dL Last Edit by JOYCELYN Herrera on 12/26/22 08:40 Results Reviewed Results Reviewed: Laboratory Last Values Urine pH (Auto) 6.5 12/26/22 08:38 Specific Coram (Auto) 1.015 12/26/22 08:38 Urine Protein (Auto) 0 mg/dL 12/26/22 08:38 Glucose (UA)(Auto) 0 mg/dL 12/26/22 08:38 Urine Ketones (Auto) Negative 12/26/22 08:38 Urine Blood (Auto) 25 Hector/uL 12/26/22 08:38 Urine Nitrite (Auto) Negative 12/26/22 08:38 Urine Bilirubin (Auto) 0 mg/dL 12/26/22 08:38 Urine Urobilinogen (Auto) 0.2 mg/dL 12/26/22 08:38 Leukocyte Esterase (Auto) 0 Sage/uL 12/26/22 08:38 Assessment & Plan Assessment & Plan (1) BPH (benign prostatic hyperplasia): Code(s): N40.0 - Benign prostatic hyperplasia without lower urinary tract symptoms (2) Kidney calculus: Code(s): N20.0 - Calculus of kidney (3) Microscopic hematuria: Code(s): R31.29 - Other microscopic hematuria Plan Continue jayln Monitor right kidney stone Renal US in 6 months. Will hold on PS screening based on AUA guidelines. Orders: Orders US renal BI 5 Months R31.29 - Other microscopic hematuria, N20.0 - Calculus of kidney AMB Urinalysis Automated 12/26/22 Z13.9 - Encounter for screening, unspecified Patient Instructions: The patient had an opportunity to ask questions regarding treatment plan. All questions were answered. Imaging, Laboratory studies and physical exam results were discussed and reviewed in detail. No major barriers to understanding were identified. The patient expressed understanding and agreement with the above treatment plan.? ? ? The patient is aware they should contact our office by phone for worsening of their current condition or the appearance of new symptoms. Compliance is e ncouraged with any medications and followup testing that is ordered.? ? ? It is a privilege to be allowed the opportunity to participate in the urologic care of your patient. If you have any questions or concerns regarding treatment for the above conditions please do not hesitate to contact me. The office telephone contact is [phone].? ? ? This note is constructed in part using voice recognition software. While every effort has been made to ensure accuracy celebrity chef entrepreneur media personality errors may have been included.? ? ? Yours sincerely,? ? ? Eliezer Garcia MD? Coding Level of Care Code Est Pt Level 4 (88337) Diagnoses BPH (benign prostatic hyperplasia) N40.0 Kidney calculus N20.0 Microscopic hematuria R31.29
== END 2022-12-26 08:51 | disposition home or self-care (01) ==
PROVIDERS: Visit Provider Urology
DX: N40.0 Benign prostatic hyperplasia without lower urinary tract symptoms (principal); N20.0 Calculus of kidney; R31.29 Other microscopic hematuria
CPT/HCPCS: 99214

== ENCOUNTER 2022-12-26 10:42 | Day surgery (SDC) | payer MEDICARE, SELFPAY ==
[2022-12-26 11:26] VITALS: BP 142/65; PULSE 84; RESP 16; TEMP 36.7; O2SAT 97; BMI 22.8
--- NOTE | 2022-12-26 14:54 | MHC.SHP ---
Pre-Procedural Eval Section A Date of Service: 12/26/22 The patient is an INPATIENT: No Changes since office visit: No Cold of Flu in the past 2 weeks, No New Medical Problems, No Changes in Medication and No Patient answered all questions The History & Physical has been completed within 30 days and I have reviewed it.: Yes Section B Chief Complaint: Ganglion, right hand Allergies: Allergies Allergy/AdvReac Type Severity Reaction Status Date / Time No Known Allergies Allergy Verified 12/26/22 08:15 Plan I have reviewed the history and physical and performed a pertinent physical examination on my patient. No changes have occurred unless specified. Time Spent With Patient Time: Total time managing care of this patient today ____ minutes.
--- NOTE | 2022-12-26 14:55 | P.OP_ITS ---
Operative Note Operative Note Date of Service: 12/26/22 Narrative: Operative Note Preop diagnosis: 1. 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 same Procedure: 1. right thumb mucous cyst excision 2. right thumb IP joint arthrotomy and excision of osteophytes. Surgeon: Amanda Molina MD Anesthesia: Digital block using 1% lidocaine with epinephrine Findings: large, approximately 1.8 cm mucous cyst, filled with clear viscous fluid consistent with a ganglion EBL: Less than 5 mL Tourniquet time: None Specimens: None Complications: None Disposition: Brought to recovery room in stable condition Plan: Follow-up for 7-10 days for wound check and suture removal Indications: The patient is 78 for years old, with left thumb IP joint osteoarthritis and a mucous cyst that has been unresponsive to nonoperative management. The risks and benefits of operative treatment including but not limited to risk of damage to blood vessels, nerves, tendons, infection, persistent pain, persistent symptoms, recurrence or possible need for additional surgery were discussed with the patient and the patient wishes to proceed with surgery. Procedure: Once consent was obtained a digital block was performed in the p reop area using a combination of 1% lidocaine with epinephrine. The patient was then brought back to the operating suite and placed on the operative table in supine position. A tourniquet was applied to the proximal aspect of the left upper extremity and the limb was prepped and draped in a standard surgical fashion. Once assured that we had a good block, an L-shaped incision was made over the dorsal aspect of the left thumb distal phalanx. The incision was made through the skin to the subcutaneous tissues using a #15 blade. Careful dissection was made down to the level of the mucous cyst and extensor mechanism using iris scissors. this was a large mucous cyst, approximately 1.8 cm in diameter that extended across the entire aspect of the distal phalanx between the dorsal as pect of the IP joint and the eponychial fold. I carefully dissected the skin and subcutaneous tissue off of the mucous cyst. The mucous cyst was lying on the extensor tendon was carefully dissected off of the extensor tendon. The cyst was filled with clear viscous fluid consistent with a ganglion. It was dissected free from the surrounding tissues and removed from the finger. An arthrotomy was performed on the Radial side of the extensor mechanism at the D IP joint. The periarticular osteophytes were excised using a rongeur. Once satisfied, the wound was copiously irrigated with normal saline and hemostasis was obtained with a brief period of local pressure. The skin edges were reapproximated with some 5.0 Prolene suture material and a sterile dressing was applied. The patient appears to have tolerated the procedure well and with no complications. All digits were well vascularized at the conclusion of the case.
[2022-12-26 15:06] VITALS: BP 133/72; PULSE 87; RESP 18; O2SAT 99
== END 2022-12-26 15:10 | disposition home or self-care (01) ==
PROVIDERS: PCP Internal Medicine; Visit Provider Orthopaedic Surgery
PROC: (CPT 26160; principal; 2022-12-26 12:10)
DX: M67.441 Ganglion, right hand (principal); M19.041 Primary osteoarthritis, right hand; N40.0 Benign prostatic hyperplasia without lower urinary tract symptoms; R31.29 Other microscopic hematuria; N20.0 Calculus of kidney
CPT/HCPCS: 26160; 81003; 88304; 99212; J0171

== ENCOUNTER → 2022-12-26 10:42 | Outpatient (BNV) | payer MEDICARE, SELFPAY | PROVIDERS: PCP Internal Medicine; Visit Provider Orthopaedic Surgery | DX: M85.641 Other cyst of bone, right hand (principal); M19.041 Primary osteoarthritis, right hand; M25.741 Osteophyte, right hand | CPT/HCPCS: 26160; 26210 ==

== ENCOUNTER 2023-01-07 14:56 | Outpatient (AMB) | payer MEDICARE, SELFPAY ==
[2023-01-07 15:06] VITALS: BMI 22.8
--- NOTE | 2023-01-07 15:06 | A.OFFVIS_ITS ---
Intake Vital Signs 01/07/23 15:06 Height 5 ft 8 in Weight 150 lb BMI 22.8 Intake Visit Reasons: PO RT Thumb Mucous excision 12/26/22AR Intake Note: Supa 82 yr old male presents today for his P/O right thumb mucous exc from 12/26/[address] [place]ina. State she has had no pain and is doing very well. Sutures removed and stri stips applied. Allergies No Known Allergies Allergy (Verified 01/07/23 15:20) HPI PO RT Thumb Mucous excision 12/26/22AR HPI Details Supa is an 82 year old right hand dominant man who presents S/P right thumb IP joint mucous cyst excision, DOS: 12/26/22. He says he is doing well and denies any pain. He is happy with the results of his surgery. [facility] Social History Current occupational status: disabled Current occupation: rt hand Review of Systems Const All systems reviewed & are unremarkable except as noted in HPI and below Physical Exam Vital Signs: BMI result Body Mass Index 22.8 Const General: no acute distress and alert Orientation/consciousness: patient oriented x3 Neuro General: patient oriented x3 Extrem Other: The patient was alert oriented and in no acute distress The incision is healing well with no erythema drainage or evidence of infection. Sutures removed and Steri-Strips applied No visible mucous cyst He can make a fist and extend all his digits No locking or catching Sensation is intact Cap refill is brisk Pathology report 12/27/22 Diagnosis A right thumb, soft tissue cyst, excision: Fibrovascular tissue with myxoid and cystic degeneration, consistent with digital mucous (myxoid) cyst Psych Appearance: grossly normal Affect: normal affect Attitude: cooperative Assessment & Plan Assessment & Plan (1) Mucous cyst of digit of right hand: Code(s): M67.441 - Ganglion, right hand Plan 1. 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 The patient appears to be doing well post-operatively I educated him about the post-operative course I explained the signs and symptoms of infection, if the patient develops any new or worsening erythema, drainage, pain, or warmth they should contact the clinic or attend the ED. I discussed activity modifications, he is to lift nothing heavier than a cellphone for the next two weeks He will perform gentle ROM exercises at home He should avoid any underwater activities for the next 5 days He should gently massage about the incision site to reduce the risk of hypersensitivity He can follow up prn Scribed for Amanda [place] MD by Tj Friend, medical referral coordinator, on 01/07/23 at 3:45 PM, EST. Coding Level of Care Code Global (63752) Diagnoses Mucous cyst of digit of right hand M67.441
== END 2023-01-07 16:16 | disposition home or self-care (01) ==
PROVIDERS: PCP Internal Medicine; Visit Provider Orthopaedic Surgery
DX: M67.441 Ganglion, right hand (principal)
CPT/HCPCS: 99024

== ENCOUNTER → 2023-01-07 14:56 | Outpatient (BNVA) | payer MEDICARE, SELFPAY | PROVIDERS: PCP Internal Medicine; Visit Provider Orthopaedic Surgery ==

== ENCOUNTER 2023-03-18 09:25 | Outpatient (REF) | payer MEDICARE, SELFPAY ==
--- NOTE | ~2023-03-18 | XR_ITS ---
EXAMINATION: XR HAND, RIGHT CLINICAL INFORMATION: Pain in the right hand attention to the right thumb COMPARISON: None available. TECHNIQUE: AP and oblique views of the right hand and AP and lateral views of the right thumb lateral view of the right thumb. FINDINGS: IP joint of the thumb: There is mild to moderate osteoarthritis manifested by nonuniform joint space narrowing and prominent marginal osteophytes. The remaining bones joints and soft tissues are unremarkable. XR/XR hand RT min 3V IMPRESSION: Mild to moderate osteoarthritis of the IP joint of the thumb.
== END 2023-03-18 09:26 | disposition home or self-care (01) ==
LOC: HO.HOSX 09:25
PROVIDERS: Visit Provider Orthopaedic Surgery
DX: M67.441 Ganglion, right hand (principal)
CPT/HCPCS: 73130; 99212

== ENCOUNTER 2023-03-18 11:15 | Outpatient (AMB) | payer MEDICARE, SELFPAY ==
[2023-03-18 11:22] VITALS: BMI 22.8
--- NOTE | 2023-03-18 11:22 | MHC.OFFVIS ---
Intake Vital Signs 03/18/23 11:22 Height 5 ft 8 in Weight 150 lb BMI 22.8 Intake Visit Reasons: OV-RT Thumb Mucous excision-Cyst growing back Intake Note: Supa 82 yr old male presents today for for a follow up visit for his s/p right thumb ganglion cyst excision DOS 12/26/[address] Molina. States his cyst has returned and is causing discomfort. Reports his cyst return about 2 months after his surgery. Patient would like to discuss if another procedure is needed. Allergies No Known Allergies Allergy (Verified 03/18/23 11:27) HPI OV-RT Thumb Mucous excision-Cyst growing back HPI Details Supa is an 82 year old right hand dominant Eritrean speaking man who returns with concerns of a recurrent right thumb mucous cyst. He is seen today with his daughter. He has a hx of a right thumb mucous cyst excision, IP joint arthrotomy and ostephyte excision, DOS: 12/26/22. He says a mass began to develop in the same spot as prior to surgery, sometime in 03/01, he says almost two months following his surgery. He is worried this is a recurrence. He denies any drainage and says it was painful when it began to return, but is not particularly painful right now. [facility] Social History Current occupational status: disabled Current occupation: rt hand Review of Systems Const All systems reviewed & are unremarkable except as noted in HPI and below Physical Exam Vital Signs: BMI result Body Mass Index 22.8 Const General: no acute distress and alert Orientation/consciousness: patient oriented x3 Neuro General: patient oriented x3 Extrem Other: Evaluation of Upper Extremity: The patient is alert, oriented, and in no acute distress Neuro: Median, Ulnar, Radial nerves motor and sensory intact and sensation is normal to the tips of all digits Vascular: Cap refill brisk ROM: He can make a fist and extend all his digits Has a fairly large recurrent mucous cyst, measuring ~1.5 cm in diameter & ~7-8mm in thickness, across the dorsal aspect of his right thumb distal phalanx and IP joint. Appears to be fluid filled. No surrounding erythema, no drainage. The area is not particularly tender. Good active range of motion of the thumb including the IP joint. Radiographs: 3 views of the right hand were taken and viewed by me today in clinic. They show significant IP joint arthritis of the thumb, with near complete loss of joint space with osteophyte formation and subchondral sclerosis. Psych Appearance: grossly normal Affect: normal affect Attitude: cooperative Assessment & Plan Assessment & Plan (1) Mucous cyst of digit of right hand: Code(s): M67.441 - Ganglion, right hand Plan Assessment & Plan 1 Right thumb IP joint osteoarthritis 2. Right thumb IP joint mucous cyst, recurrent S/P mucous cyst excision, IP joint arthrotomy and ostephyte excision DOS: 12/26/22 Measuring ~1.5cm in diameter and ~7-8mm in thickness I educated him and his daughter about this condition I discussed operative and non-operative treatment options The patient would like to proceed with surgery, but he is unsure when he wants this and would like to take time to consider his options. He may like to have this done sometime in May I did explain that this is not dangerous The risks and benefits of operative treatment were discussed with the patient and the patient wishes to proceed with surgery. These risks include, but are not limited to risk of damage to blood vessels, nerves, tendons, infection, recurrence, incomplete relief of preoperative symptoms, persistent pain, possible need for further surgery and the risks associated with regional blocks and anesthesia. The plan is to take the patient to the operating room sometime in the next few weeks for the following procedures: 1. Right thumb repeat excision of mass, under local All of the preoperative paperwork including the consent was reviewed today. All the patient's questions were answered. He was given the contact information for Alena, our community action worker He denies Diabetes, blood thinners, asthma, heart, lung, kidney issues Scribed for Amanda [place] MD by Tj Friend, medical records analyst, on 03/18/23 at 11:40 AM, EST. Orders: Orders XR hand RT min 3V Today M79.641 - Pain in right hand Coding Level of Care Code Est Pt Level 4 (21112) Diagnoses Mucous cyst of digit of right hand M67.441
== END 2023-03-18 11:49 | disposition home or self-care (01) ==
PROVIDERS: PCP Internal Medicine; Visit Provider Orthopaedic Surgery
DX: M67.441 Ganglion, right hand (principal)
CPT/HCPCS: 99024

== ENCOUNTER 2023-05-30 07:53 | Outpatient (REF) | payer MEDICARE, SELFPAY ==
--- NOTE | ~2023-05-30 | US_ITS ---
EXAMINATION: US RETROPERITONEAL LIMITED (RENAL ONLY) CLINICAL INFORMATION: Other microscopic hematuria. COMPARISON: CT abdomen and pelvis 01/06/2022. TECHNIQUE: Real-time imaging of the kidneys. FINDINGS: RIGHT KIDNEY: 10.8 x 4.2 x 5.7 cm (SAG x AP x TRV). The kidney is normal in size, contour, and echogenicity. Renal cortical thickness is normal. No calculi or focal parenchymal lesions. No hydronephrosis. LEFT KIDNEY: 11.3 x 4.8 x 4.8 cm (SAG x AP x TRV). The kidney is normal in size, contour, and echogenicity. Renal cortical thickness is normal. No renal calculi or hydronephrosis. Benign-appearing 2.3 cm cyst. US/US renal BI IMPRESSION: Benign-appearing left renal cyst. Followup imaging is not routinely recommended for benign appearing cysts.
== END 2023-05-30 07:54 | disposition home or self-care (01) ==
LOC: HO.US 07:53
PROVIDERS: PCP Internal Medicine; Visit Provider Urology
DX: N20.0 Calculus of kidney (principal); R31.29 Other microscopic hematuria
CPT/HCPCS: 76775

== ENCOUNTER 2023-06-27 14:34 | Outpatient (AMB) | payer MEDICARE, SELFPAY ==
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
== END 2023-06-27 15:27 | disposition home or self-care (01) ==
PROVIDERS: PCP Internal Medicine; Visit Provider Urology
DX: N40.0 Benign prostatic hyperplasia without lower urinary tract symptoms (principal); N20.0 Calculus of kidney; R31.29 Other microscopic hematuria
CPT/HCPCS: 99214

== ENCOUNTER 2023-06-27 14:34 | Outpatient (REF) | payer MEDICARE, SELFPAY ==
[2023-06-27 17:54] LABS: Urine Cytology See Pathology rpt
== END 2023-06-27 14:35 | disposition home or self-care (01) ==
LOC: HO.LAB 14:34
PROVIDERS: PCP Internal Medicine; Visit Provider Urology
DX: N40.0 Benign prostatic hyperplasia without lower urinary tract symptoms (principal); N20.0 Calculus of kidney; R31.29 Other microscopic hematuria; Z87.448 Personal history of other diseases of urinary system
CPT/HCPCS: 88112; 99212

== ENCOUNTER 2023-09-08 11:29 | Outpatient (REF) | payer MEDICARE, SELFPAY ==
[2023-09-08 11:54] LABS: MANUAL DIFF FLAG NO
[2023-09-08 12:05] LABS: Basophils Percent Auto 0.5 % (0-2); Eosinophils Absolute Auto 0.3 X10*3/uL (0.0-0.4); Eosinophils Percent Auto 3.6 % (0-4); Hematocrit 43.2 % (42.0-52.0); Imm Gran Abs Auto 0.02 X10*3/uL (0.00-0.03); Imm Gran Pct Auto 0.3 % (0.0-0.4); Lymphocytes Absolute Auto 1.8 X10*3/uL (1.2-4.9); Lymphocytes Percent Auto 23.7 % (20-40); Mean Corpuscular HGB Conc 32.4 g/dl (31.0-36.0); Mean Corpuscular Hemoglobin 32.2 pg (27.0-33.0); Mean Corpuscular Volume 99.3 fL (80.0-98.0); Mean Platelet Volume 10.5 fL (9.4-12.4); Monocytes Absolute Auto 0.7 X10*3/uL (0.1-1.2); Monocytes Percent Auto 9.3 % (2-11); Neutrophils Absolute Auto 4.7 x10*3/uL (2.0-8.3); Neutrophils Percent Auto 62.6 % (45-73); Platelet Count 262 X10*3/uL (160-400); Red Blood Count 4.35 X10*6/uL (4.60-5.80); White Blood Count 7.6 X10*3/uL (4.8-10.8)
[2023-09-08 12:46] LABS: Alanine Aminotransferase < 5 U/L (0-40); Albumin Level 3.9 g/dL (3.5-5.0); Alkaline Phosphatase 86 U/L (39-117); Anion Gap 10 (12-20); Aspartate Amino Transferase 18 U/L (5-37); Bilirubin Total 0.5 mg/dL (0.0-1.0); Blood Urea Nitrogen 20 mg/dL (9-16); Calcium 9.4 mg/dL (8.4-10.2); Carbon Dioxide 30 mmol/L (22-29); Chloride 106 mmol/L (96-108); Cholesterol 165 mg/dL (<200); Estimated Glomerular Filt Rate > 60; Glucose Random 101 mg/dL (60-115); Potassium 5.1 mmol/L (3.3-5.1); Sodium 141 mmol/L (135-145)
[2023-09-08 12:56] LABS: Prostate Specific Antigen 0.63 ng/mL (<0.05-4.0)
== END 2023-09-08 11:30 | disposition home or self-care (01) ==
LOC: HO.LAB 11:29
PROVIDERS: PCP Internal Medicine; Visit Provider Internal Medicine
DX: G20.A1 Parkinson's disease without dyskinesia, without mention of fluctuations (principal); I10 Essential (primary) hypertension; N40.0 Benign prostatic hyperplasia without lower urinary tract symptoms; L40.9 Psoriasis, unspecified; Z12.5 Encounter for screening for malignant neoplasm of prostate
CPT/HCPCS: 36415; 80053; 82465; 84153; 85025

== ENCOUNTER 2023-11-19 14:53 | Outpatient (AMB) | payer MEDICARE, SELFPAY ==
[2023-11-19 15:00] VITALS: BMI 22.8
--- NOTE | 2023-11-19 15:00 | MHC.OFFVIS ---
Vital Signs 11/19/23 15:00 Height 5 ft 8 in Weight 150 lb BMI 22.8 Intake Visit Reasons: OV- RT thumb cyst came back Intake Note: Supa 82 yr old right hand dominant male who presents today for for a follow up evaluation of a right thumb ganglion cyst. Patient reports it came back although this was previously removed, DOS 12/26/[address] Molina. Patient reports it is only painful to the touch, on and off drainage. Patient denies limited ROM. Allergies No Known Allergies Allergy (Verified 11/19/23 15:05) [facility] Social History Current occupational status: disabled Current occupation: rt hand Physical Exam Vital Signs: BMI result Body Mass Index 22.8 Extrem Other: The patient is alert, oriented, and in no acute distress Neuro: Median, Ulnar, Radial nerves motor and sensory intact and sensation is normal to the tips of all digits Vascular: Cap refill brisk ROM: He can make a fist and extend all his digits Has a fairly large recurrent multi lobular mucous cyst, measuring ~1.7 cm in diameter & ~7-8mm in thickness, across the dorsal aspect of his right thumb distal phalanx and IP joint. Appears to be fluid filled. No surrounding erythema, no drainage. The area is not particularly tender. Good active range of motion of the thumb including the IP joint. Radiographs: 3 views of the right hand were taken and viewed by me today in clinic. They show significant IP joint arthritis of the thumb, with near complete loss of joint space with osteophyte formation and subchondral sclerosis. Assessment & Plan Assessment & Plan (1) Mucous cyst of digit of right hand: Code(s): M67.441 - Ganglion, right hand Category: Medical (2) Mass of skin of right thumb: Code(s): R22.31 - Localized swelling, mass and lump, right upper limb Category: Medical (3) Osteoarthritis of right hand: Code(s): M19.041 - Primary osteoarthritis, right hand Category: Medical Plan Assessment & Plan 1 Right thumb IP joint osteoarthritis 2. Right thumb IP joint mucous cyst, recurrent S/P mucous cyst excision, IP joint arthrotomy and ostephyte excision DOS: 12/26/22 Measuring ~1.7cm in diameter and ~7-8mm in thickness I educated him and his daughter about this condition I discussed operative and non-operative treatment options He would like to proceed with surgery The risks and benefits of operative treatment were discussed with the patient and the patient wishes to proceed with surgery. These risks include, but are not limited to risk of damage to blood vessels, nerves, tendons, infection, recurrence, incomplete relief of preoperative symptoms, persistent pain, possible need for further surgery and the risks associated with regional blocks and anesthesia. I did explain that there certainly another chance of recurrence. IP joint arthrodesis would be more likely to stop the progression of the cysts, however he has fairly good motion and is not interested, understandably, in an arthrodesis. The plan is to take the patient to the operating room sometime in the next few weeks for the following procedures: 1. Right thumb repeat excision of mass, under local All of the preoperative paperwork including the consent was reviewed today. All the patient's questions were answered. He was given the contact information for Alena, our oral surgery physician He denies Diabetes, blood thinners, asthma, heart, lung, kidney issues Coding Level of Care Code Est Pt Level 4 (57092) Diagnoses Mucous cyst of digit of right hand M67.441 Mass of skin of right thumb R22.31 Osteoarthritis of right hand M19.041
== END 2023-11-19 15:54 | disposition home or self-care (01) ==
PROVIDERS: PCP Internal Medicine; Referring Provider Internal Medicine; Visit Provider Orthopaedic Surgery
DX: M67.441 Ganglion, right hand (principal); M19.041 Primary osteoarthritis, right hand
CPT/HCPCS: 99214

== ENCOUNTER → 2023-11-19 14:53 | Outpatient (BNVA) | payer MEDICARE, SELFPAY | PROVIDERS: PCP Internal Medicine; Visit Provider Orthopaedic Surgery | DX: M67.441 Ganglion, right hand (principal); M19.041 Primary osteoarthritis, right hand | CPT/HCPCS: 99212 ==

== ENCOUNTER 2024-04-02 13:18 | Outpatient (AMB) | payer MEDICARE, SELFPAY ==
--- NOTE | 2024-04-02 13:22 | A.OFFVIS_ITS ---
Intake Visit Reasons: 9 month follow up-med review Intake Note: Patient is present for Med Review Urology Med: dutasteride-tamsulosin 0.5-0.4 mg ER (Jaclyn) 1 cap PO DAILY Antibiotic Allergy: None Blood Thinner: None PVR: 283ml Milieu Counselor Required: No Trauma Therapist: Trauma Therapist Present Accompanied by: Daughter Allergies No Known Allergies Allergy (Verified 11/19/23 15:05) Medication List - Last Reconciled 04/02/24 by Eliezer Garcia MD carbidopa-levodopa 25-100 mg 1 tab PO TID dutasteride-tamsulosin 0.5-0.4 mg ER (Jaclyn) 1 cap PO DAILY enalapril maleate 10 mg PO DAILY HPI Comments Details: Supa is an 83-year-old male followed for BPH and microscopic hematuria. He is on Jaclyn 1 tablet daily. He is here with his daughter who states that Supa has been doing well in regards to urination has no complaints. Bladder scan PVR today is elevated. Urinalysis persistent microscopic hematuria. Plan urine cytology, re-evaluate urinary tract with ultrasound. Cont Jaclyn. 06/27/23--Supa is an 82-year-old male who presents today to the office for a follow-up, hematuria and BPH. Also prior CT imaging noted a 3 mm right kidney stone. He had renal ultrasound done. I reviewed results. Bilateral renal cysts, no renal calculi noted. The patient is on Jeanine for BPH symptoms. He is is voiding without difficulty he denies dysuria. Urinalysis-blood 1+. Will send urine for cytology. --plan discussed will cecile Anaya, continue to monitor kidneys. Follow-up 9 months check urinalysis and BPH symptoms at that time 12/26/22?He is followed today for hematuria. He prior cysto, 01/2022 which was wnL, Jaclyn was started at that time. He was last seen by me on 06/13/22 for BPH. He is presents with his daughter. He states that he gets up 3 times at night to urinate. He denies any dysuria, or gross hematuria. The patient has been compliant with his meds daily Jaclyn 04 mg. In review of his chart he does have right kidney stone 3 mm noted on prior CAT scan imaging. I have discussed AUA guidelines recommendations for PSA screening. Plan discussed Continue jayln, Monitor right kidney stone. Renal US in 6 months. I reviewed the PSA results from 11/14/22 revealed 1.48. 06/13/22--JEFFRY: Prostate exam: Prostate was enlarged, no hard, irregular areas palpated.? office cystoscopy on 02/05/22 which was negative for suspicious bladder lesion.? PFSH Social History Current occupational status: disabled Current occupation: rt hand Review of Systems Const All systems reviewed & are unremarkable except as noted in HPI and below Reports no additional complaints Eyes Reports no additional complaints ENT Reports no additional complaints Card Reports no additional complaints Resp Reports no additional complaints GI Reports no additional complaints Reports as per HPI Musc Reports no additional complaints Skin/Breast Reports system reviewed and no additional complaints, except as documented Neuro Reports no additional complaints Psych Reports no additional complaints Endo Reports no additional complaints Mikey/Lymph Reports no additional complaints Aller/Immun Reports no additional complaints Office Procedures Post Void Residual Post Residual Void Post Void Residual (PVR): [id number] Void Residual by ultrasound Results AMB Urinalysis, Automated UA Leukoctes 0 Sage/uL Last Edit by Samantha Sales, [facility] on 04/02/24 13:42 UA Nitrite Negative Last Edit by Samantha Sales [facility] on 04/02/24 13:42 UA Urobilinogen 0.2 mg/dL Last Edit by Samantha Sales, A on 04/02/24 13:4 2 UA Protein 0 mg/dL Last Edit by Samantha Sales [facility] on 04/02/24 13:42 UA pH 6.0 Last Edit by Samantha Sales A on 04/02/24 13:42 UA Blood 25 Hector/uL Last Edit by Samantha Sales [facility] on 04/02/24 13:42 UA Specific Fallon 1.010 Last Edit by Samantha Sales [facility] on 04/02/24 13: 42 UA Ketone Negative Last Edit by Samantha Sales, A on 04/02/24 13:42 UA Bilirubin 0 mg/dL Last Edit by Samantha Sales [facility] on 04/02/24 13:42 UA Glucose 0 mg/dL Last Edit by JOYCELYN Reno on 04/02/24 13:42 Assessment & Plan Assessment & Plan (1) BPH (benign prostatic hyperplasia): Code(s): N40.0 - Benign prostatic hyperplasia without lower urinary tract symptoms Category: Medical (2) Microscopic hematuria: Code(s): R31.29 - Other microscopic hematuria Category: Medical (3) Incomplete bladder emptying: Code(s): R33.9 - Retention of urine, unspecified Category: Medical Plan urine cytology, re-evaluate urinary tract with ultrasound. Cont Jaclyn. Orders: Orders Urine Cytology Today R31.29 - Other microscopic hematuria AMB Urinalysis Automated Today Z13.9 - Encounter for screening, unspecified AMB Post Void Residual by ultrasound Today N40.0 - Benign prostatic hyperplasia without lower urinary tract symptoms US retroperitoneal comp Today N40.0 - Benign prostatic hyperplasia without lower urinary tract symptoms, R31.29 - Other microscopic hematuria, R33.9 - Retention of urine, unspecified Medications: Refilled dutasteride-tamsulosin 0.5-0.4 mg ER (Jaclyn) 1 cap PO DAILY 90 caps 3RF Patient Instructions: The patient had an opportunity to ask questions regarding treatment plan. The patient expressed understanding and agreement with the above treatment plan. The patient is aware they should contact our office by phone for worsening of their current condition or the appearance of new symptoms. Compliance is encouraged with any medications and followup testing that is ordered. It is a privilege to be allowed the opportunity to participate in the urologic care of your patient. If you have any questions or concerns regarding treatment for the above conditions please do not hesitate to contact me. The office telephone contact is [phone]. This note is constructed in part using voice recognition software. While every effort has been made to ensure accuracy petroleum engineer errors may have been included. Yours sincerely, Eliezer Garcia MD Coding Level of Care Code Est Pt Level 4 (66665) Diagnoses BPH (benign prostatic hyperplasia) N40.0 Microscopic hematuria R31.29 Incomplete bladder emptying R33.9 CPT Codes Post Residual Void - PVR CPT Code: 59033-Supj Void Residual by ultrasound ([id number])
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
--- OUTSIDE RECORDS SUMMARY | 2024-04-02 15:02 | XMS_ITS ---
Author Organization [facility] Address [address] [place] [phone] Care Team Providers Care Purchasing Assistant Name Role Phone Vini Borges MD Primary Care Provider Unavaila Navdeep Driver Unavailable [phone] REASON FOR VISIT SCREENING COLON Encounters Encounter Location Date Provider Diagnosis [facility] Outpatient [address] [place], [place] [phone] 09/26/2023 Navdeep Ken PLAN OF TREATMENT No Information
--- OUTSIDE RECORDS SUMMARY | 2024-04-02 15:03 | XMS_ITS ---
Author Organization [facility] Address [address] [place] [phone] Care Team Providers Care Greens Picker Name Role Phone Vini Borges MD Primary Care Provider Navdeep Steele Unavailable [phone] ALLERGIES No Known Allergies REASON FOR VISIT Patient presents today for a colon screening MEDICATIONS Medication SIG (Take, Route, Frequency, Duration) [...] screening (Z12.11) Active confirmed Colon cancer screening ([id number]) Problem Encounter for other preprocedural examination (Z01.818) Active confirmed Pre-procedure evaluation check ([id number]) VITAL SIGNS BMI 22.80 kg/m2 06/04/2023 Blood pressure systolic 00 mm Hg 06/04/19 24 Blood pressure diastolic 00 mm Hg 024 Height 5 ft 8 in in 06/04/2023 Weight 150 lbs 06/04/2023 Encounters Encounter Location Date Provider Diagnosis [facility] [address] [place] [address] 06/04/2023 Navdeep Ken Colon cancer screeni ng Z12.11 and Encounter for other preprocedural examination Z01.818 ASSESSMENTS Encounter Date Diagnosis Assessment Notes Treatment Notes Treatment Clinical Notes 06/04/2023 Colon cancer screening (ICD-10 - Z12.11) Obtain a Cologuard test from Dr. Borges and let me know the results. If it is positive we would then schedule you for a colonoscopy. 06/04/2023 Encounter for other preprocedural examination (ICD-10 - Z01.818) PLAN OF TREATMENT Treatment Notes Assessment Notes Colon cancer screening Obtain a Cologuar d test from Dr. Borges and let me know the results. If it is positive we would then schedule you for a colonoscopy. Next Appt Details Follow Up: prn, Reason: Progress Notes * Examination Category Sub-Category Detail Notes General Examination GENERAL APPEARANCE: pleasant , well nourished, well developed, in no acute distress HEAD: EYES: sclera non-icteric EARS: NOSE: THROAT: NECK/THYROID: no cervical lymphade nopathy, neck supple HEART: S1, S2 normal CHEST: LUNGS: clear to auscultatio n bilaterally ABDOMEN: normal bowel sounds, no guarding or rigidity, no guarding or rigidity, no masses palpable, soft, nontender, nondistended NEUROLOGIC: alert and oriented SKIN: nonjaundiced, no spi hoda angiomata EXTREMITIES: no edema PERIPHERAL PULSES: BACK: BREASTS: MUSCULOSKELETAL: MALE GENITOURINARY: LYMPH NODES: RECTAL EXAM: FEMALE GENITOURINARY: ORAL CAVITY: mucosa moist
--- OUTSIDE RECORDS SUMMARY | 2024-04-02 15:03 | XMS_ITS ---
Author Organization [facility] Address [address] [place] [phone] Care Team Providers Care District Resource Officer Name Role Phone Vini Borges MD Primary Care Provider Unavaila Navdeep Driver Unavailable [phone] REASON FOR VISIT prior authorization Encounters Encounter Location Date Provider Diagnosis [facility] [address] [place] [phone] 06/04/2023 Navdeep Ken PLAN OF TREATMENT No Information
== END 2024-04-02 13:53 | disposition home or self-care (01) ==
PROVIDERS: PCP Internal Medicine; Visit Provider Urology
DX: N40.0 Benign prostatic hyperplasia without lower urinary tract symptoms (principal); R31.29 Other microscopic hematuria; R33.9 Retention of urine, unspecified; Z13.9 Encounter for screening, unspecified
CPT/HCPCS: 99214

== ENCOUNTER 2024-04-02 13:18 | Outpatient (REF) | payer MEDICARE, SELFPAY ==
[2024-04-02 16:24] LABS: Urine Cytology See Pathology rpt
== END 2024-04-02 13:19 | disposition home or self-care (01) ==
LOC: HO.LAB 13:18
PROVIDERS: PCP Internal Medicine; Visit Provider Urology
DX: R31.29 Other microscopic hematuria (principal); R82.998 Other abnormal findings in urine; N40.0 Benign prostatic hyperplasia without lower urinary tract symptoms; Z13.9 Encounter for screening, unspecified
CPT/HCPCS: 51798; 81003; 88112; 99212

== ENCOUNTER 2024-05-21 13:23 | Outpatient (AMB) | payer MEDICARE, SELFPAY ==
[2024-05-21 13:39] VITALS: BP 130/70; PULSE 78; RESP 16; TEMP 36.5; O2SAT 98; BMI 23.6
--- NOTE | 2024-05-21 13:39 | MHC.PC.OV ---
Vital Signs 05/21/24 13:39 Height 5 ft 8 in Weight 155 lb BMI 23.6 BP 130/70 Respiration 16 Pulse 78 Pulse Source Pulse Oximeter Temp 97.7 F Temp Source Temporal Artery Scan Pulse Oximetry (%) 98 Oxygen Delivery Method Room Air Intake Visit Reasons: Routine Cloth Cutting Inspector Required: No Accompanied by: Daughter Allergies No Known Allergies Allergy (Verified 05/21/24 13:39) Medication List - Last Reconciled 05/21/24 by Ya Farris MD carbidopa-levodopa 25-100 mg 1 tab PO QID dutasteride-tamsulosin 0.5-0.4 mg ER (Jaclyn) 1 cap PO DAILY enalapril maleate 10 mg PO DAILY Tobacco use date assessed: 05/21/24 Fall risk assessment: 2 + Falls in past year Last assessed Fall Risk: 05/21/24 Dental Screening Dental Screen Date: 05/21/24 Did you have a dental visit in the last 12 months?: No Did you have a dental problem in the last 6 months where you did not have access to dental care?: No HPI HPI Comments History of Present Illness Details 83 year old male with a past medical history of hypertension, BPH, parkinsons, history of CVA presenting for follow up. CV: On enalapril 10mg daily. Normotensive. Denies chest pain, shortness of breath Left knee instability. no pain remote injury Follows with urology bph, hematuria Continues to see urology. On dutasteride tamsulosin. Neurology: Parkinsons. On carbidopa-levodopa. ROS CONSTITUTIONAL: Denies weight loss, fever and chills. HEENT: Denies changes in vision and hearing. RESPIRATORY: Denies SOB and cough. CV: Denies palpitations and CP GI: Denies abdominal pain, nausea, vomiting and diarrhea. : Denies dysuria and urinary frequency. MSK: Denies new myalgia and joint pain. SKIN: Denies rash and pruritus. NEUROLOGICAL: Denies headache PSYCHIATRIC: Denies recent changes in mood. PHYSICAL EXAM: GENERAL: Alert and oriented x 3. NAD EYES: EOMI. Anicteric. HENT: Moist mucous membranes. No scleral icterus. No cervical lymphadenopathy. LUNGS: Clear to auscultation bilaterally. CARDIOVASCULAR: Regular rate and rhythm. No murmur. No JVD. ABDOMEN: Soft, non-tender +bs EXTREMITIES: No edema. Non-tender. SKIN: No rashes or lesions. Warm. NEUROLOGIC: No focal neurological deficits. CN II-XII grossly intact PSYCHIATRIC: Cooperative. Appropriate mood and affect [facility] Family History Father No problems noted. Mother No problems noted. Social History Housing: Apartment Alcohol intake: never Patient Tobacco Use Status: Never used Tobacco service: No Current occupational status: disabled Current occupation: rt hand Cognitive needs: Yes (cane) Hearing needs: No Vision needs: Yes (rx glasses) Questionnaire PHQ-9 Over the last 2 weeks, how often have you been bothered by any of the following problems? 1. Little interest or pleasure in doing things: not at all 2. Feeling down, depressed, or hopeless: not at all 3. Trouble falling or staying asleep, or sleeping too much: not at all 4. Feeling tired or having little energy: not at all 5. Poor appetite or overeating: not at all 6. Feeling bad about yourself - or that you are a failure or have let yourself or your family down: not at all 7. Trouble concentrating on things, such as reading the newspaper or watching television: not at all 8. Moving or speaking so slowly that other people could have noticed. Or the opposite - being so fidgety or restless that you have been moving around a lot more than usual: not at all 9. Thoughts that you would be better off or of hurting yourself in some way: not at all Total score: 0 Depression Screening Interpretation: Negative Depression Screening Done: Yes 82957 - PHQ-9 Billing: Yes Source: Developed by Drs. Navdeep Torres, Zenia Plummer, Adis López and colleagues, with an educational milagros from [employer]. Thrive Questionnaire Date Thrive assessed: 05/21/24 I am a: Patient What is your living situation today?: I have a steady place to live Within the past 12 months, did the food you bought not last and you didn't have the money to get more?: Never true Within the past 12 months, did you worry whether your food would run out before you got money to buy more?: Never true Do you have trouble paying for medicines?: No Do you have trouble getting transportation to medical appointments?: No Do you have trouble paying your heating and electricity bill?: No Do you have trouble taking care of your child, family member or friend?: No Do you have trouble with day-to-day activities such as bathing, preparing meals, shopping, managing finances, etc.?: No Are you currently unemployed and looking for a job?: No Are you interested in more education?: No Please select the resources that you would like help with: None THRIVE Score: 0 AUDIT C Alcohol Use Questionnaire (AUDIT-C) 1. How often do you have a drink containing alcohol?: Never 3. How often do you have six or more drinks on one occasion?: Never Total Score: 0 PHUONG-7 AMB Questionnaire PHUONG-7 Date PHUONG - 7 assessed: 05/21/24 Feeling nervous, anxious, or on edge: 0 = Not at all Not being able to stop or control worryin = Not at all Worrying too much about different things: 0 = Not at all Trouble relaxin = Not at all Being so restless that it is hard to sit still: 0 = Not at all Becoming easily annoyed or irritable: 0 = Not at all Feeling afraid as if something awful might happen: 0 = Not at all Total PHUONG-7 score (0-4 normal; 5-9 mild; 10-14 moderate; 15-21 severe): 0 Source: Developed by Drs. Navdeep Torres, Zenia Plummer, Adis López and colleagues, with an educational milagros from [employer]. Physical exam (Primary Care) Vital Signs: Last Vital Signs Temp 97.7 F 05/21/24 13:39 Pulse 78 05/21/24 13:39 Resp 16 05/21/24 13:39 BP 130/70 05/21/24 13:39 Pulse Ox 98 05/21/24 13:39 Oxygen Delivery Method Room Air 05/21/24 13:39 BMI result Body Mass Index 23.6 Tobacco/Smoking Status: Tobacco use Status Tobacco use date assessed 05/21/24 05/21/24 13:40 Patient Tobacco Use Status Never used Tobacco 05/21/24 13:40 PHQ-9: PHQ-9 Score PHQ-9: Total score 0 05/21/24 14:53 Depression Screening Interpretation: Negative Thrive Assessment: Date of Thrive Assessment Date Thrive assessed 05/21/24 05/21/24 13:40 Coding Level of Care Code Est Pt Level 4 (09737) Complex EM visit Add On G2211 Diagnoses Primary hypertension I10 Hypertension type: primary hypertension Parkinson's disease with fluctuating manifestations, unspecified whether dyskinesia present G20.A2 Dyskinesia presence: unspecified whether dyskinesia Fluctuating manifestations: with fluctuating manifestations Additional Codes PHQ-9 - 41047 - PHQ-9 Billing: Yes ([id number]) Assessment & Plan Assessment & Plan (1) Hypertension: Code(s): I10 - Essential (primary) hypertension Category: Medical Qualifiers: Hypertension type: primary hypertension Qualified Code(s): I10 - Essential (primary) hypertension Plan: stable on current meds low salt diet (2) Parkinson disease: Code(s): G20.A1 - Parkinson's disease without dyskinesia, without mention of fluctuations Category: Medical Qualifiers: Dyskinesia presence: unspecified whether dyskinesia Fluctuating manifestations: with fluctuating manifestations Qualified Code(s): G20.A2 - Parkinson's disease without dyskinesia, with fluctuations Plan: continue neurology follow up. 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 Vitamin B12 and Folate Today G20.A1 - Parkinson's disease without dyskinesia, without mention of fluctuations, I10 - Essential (primary) hypertension, 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 TSH reflex Free T4 Today G20.A1 - Parkinson's disease without dyskinesia, without mention of fluctuations, I10 - Essential (primary) hypertension, 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
--- OUTSIDE RECORDS SUMMARY | 2024-05-21 14:58 | XMS_ITS ---
Author Organization [facility] Address [address] [place] [address] Care Team Providers Care Athletic Equipment Manager Name Role Phone Vini Borges MD Primary Care Provider Anaa Navdeep Driver Unavailable [phone] REASON FOR VISIT SCREENING COLON Encounters Encounter Location Date Provider Diagnosis [facility] [address], [place] [phone] 09/26/2023 Navdeep Ken Plan Of Treatment No Information Progress Notes * ELIUD DAVISDOB:1940 ( 83 yo M)Acc No.[id number]:09/26/2023 COLON WITH MAC Patient:?ELIUD DAVIS Provider:?Navdeep Ken MD :1940???Age:83 Y???Sex:Male Gopal e:09/26/2023 Address:[facility] Pcp:Vini Borges MD Subjective: * Chief Complaints: * ???1. SCREENING COLON. * Medical History:? Objective: * Vitals:? Assessment: Plan: * Treatment: * * The named appointment provid er may or may not be the originator of this progress note, and it is not deemed complete until electronically signed by the appointment provider. Sign off status: Pending * Provider:?Navdeep Ken MD Date:? 024 Generated for Juvenal graham/Drake/eTransmitting on:?05/21/2024 02:57 PM EDT
--- OUTSIDE RECORDS SUMMARY | 2024-05-21 14:58 | XMS_ITS ---
Author Organization [facility] Address [address] [place] [phone] Care Team Providers Care Maintenance Service Supervisor Name Role Phone Vini Borges MD Primary Care Provider Unavaila Navdeep Driver Unavailable [phone] REASON FOR VISIT prior authorization Encounters Encounter Location Date Provider Diagnosis [facility] [address] [place] [phone] 06/04/2023 Navdeep Ken Plan Of Treatment No Information Progress Notes * ELIUD DAVISDOB:1940 ( 82 yo M)Acc No.[id number]:06/04/2023 Patient:?ELIUD DAVIS :1940???Age:82 Y???Sex:Male Address:[address] [place], [address] * true * Date:? Generated for Carmeni santos/Drake/eTransmitting on:?05/21/2024 02:58 PM EDT
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
== END 2024-05-21 15:33 | disposition home or self-care (01) ==
LOC: HO.HMCHD 13:23
PROVIDERS: PCP Internal Medicine; Visit Provider Internal Medicine
DX: I10 Essential (primary) hypertension (principal); G20.A2 Parkinson's disease without dyskinesia, with fluctuations

== ENCOUNTER → 2024-05-21 13:23 | Outpatient (BNVA) | payer MEDICARE, SELFPAY | PROVIDERS: PCP Internal Medicine; Visit Provider Internal Medicine | DX: I10 Essential (primary) hypertension (principal); N40.0 Benign prostatic hyperplasia without lower urinary tract symptoms; G20.A2 Parkinson's disease without dyskinesia, with fluctuations; Z86.73 Personal history of transient ischemic attack (TIA), and cerebral infarction without residual deficits; M23.52 Chronic instability of knee, left knee | CPT/HCPCS: 96127; 99212 ==

== ENCOUNTER 2024-06-18 07:51 | Outpatient (AMB) | payer MEDICARE, SELFPAY ==
--- OUTSIDE RECORDS SUMMARY | 2024-06-18 07:54 | XMS_ITS ---
Author Organization [facility] Address [address] [place] [address] Care Team Providers Care Bearingizer Name Role Phone Vini Borges MD Primary Care Provider Anaa Navdeep Driver Unavailable [phone] REASON FOR VISIT SCREENING COLON Encounters Encounter Location Date Provider Diagnosis [facility] Outpatient [address] [place], [place] [phone] 09/26/2023 Navdeep Ken Plan Of Treatment No Information Progress Notes * ELIUD DAVISDOB:1940 ( 83 yo M)Acc No.[id number]:09/26/2023 COLON WITH MAC Patient:?ELIUD DAVIS Provider:?Navdeep Ken MD :1940???Age:83 Y???Sex:Male Gopal e:09/26/2023 Address:[id number] Pcp:Vini Borges MD Subjective: * Chief Complaints: [...] Ken MD Date:? 024 Generated for Juvenal graham/Drake/eTanithasmitting on:?06/18/2024 07:53 AM EDT
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
--- OUTSIDE RECORDS SUMMARY | 2024-06-18 07:54 | XMS_ITS ---
Author Organization [facility] Address [address] [place] [address] Care Team Providers Care Senior Instructor Name Role Phone Vini Borges MD Primary Care Provider Navdeep Steele Unavailable [phone] Allergies No Known Allergies REASON FOR VISIT [...] Status Risk Notes Problem Colon cancer screening (412487677) Colon cancer screening (Z12.11) Active confirmed Problem Pre-procedure evaluation check (780769849) Encounter for other preprocedural examination (Z01.818) Active confirmed Vital Signs Blood pressure systolic 00 mm Hg 06/04/19 24 Blood pressure diastolic 00 mm Hg 024 Height 5 ft 8 in in 06/04/2023 Weight 150 lbs 06/04/2023 BMI 22.80 kg/m2 06/04/2023 Encounters Encounter Location Date Provider [facility] [address] [place] [address] 06/04/2023 Navdeep Ken Colon cancer screeni ng [...] * ELIUD DAVISDOB:1940 ( 82 yo M)Acc No.[id number]:06/04/2023 Progress Notes Patient:?ELIUD DAVIS Provider:?Navdeep Kne MD :1940???Age:82 Y???Sex:Male Gopal e:06/04/2023 Address:[facility] [place] Pcp:Vini Borges MD Subjective: * Chief Complaints: [...] well. He describes a negative colonoscopy at [place] at approximately age 68. He enjoys a [...] MD Date:? 024 Generated for Juvenal graham/Drake/Yumiko on:?06/18/2024 07:54 AM EDT History and Physical Notes * HPI [...] well. He describes a negative colonoscopy at [place] at approximately age 68. He enjoys a [...]
--- OUTSIDE RECORDS SUMMARY | 2024-06-18 07:54 | XMS_ITS ---
Author Organization [facility] Address [address] [place] [address] Care Team Providers Care Pin Drafter Name Role Phone Vini Borges MD Primary Care Provider Unavaila Navdeep Driver Unavailable [phone] REASON FOR VISIT prior authorization Encounters Encounter Location Date Provider Diagnosis [facility] [address] [place] [address] 06/04/2023 Navdeep Ken Plan Of Treatment No Information Progress Notes * ELIUD DAVISDOB:1940 ( 82 yo M)Acc No.[id number]:06/04/2023 Patient:?ELIUD DAVIS :1940???Age:82 Y???Sex:Male Address:[address] [place], [address] * true * Date:? Generated for Carmeni santos/Drake/eTransmitting on:?06/18/2024 07:53 AM EDT
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
== END 2024-06-18 09:01 | disposition home or self-care (01) ==
LOC: HO.HUSH 07:51
PROVIDERS: PCP Internal Medicine; Visit Provider Urology
DX: R33.9 Retention of urine, unspecified (principal); N40.0 Benign prostatic hyperplasia without lower urinary tract symptoms; R31.0 Gross hematuria
CPT/HCPCS: 52000; 99213

== ENCOUNTER 2024-06-18 07:51 | Outpatient (REF) | payer MEDICARE, SELFPAY | END 2024-06-18 07:52 | disposition home or self-care (01) | LOC: HO.LAB 07:51 | PROVIDERS: PCP Internal Medicine; Visit Provider Urology | DX: R33.9 Retention of urine, unspecified (principal); R31.0 Gross hematuria; N40.0 Benign prostatic hyperplasia without lower urinary tract symptoms | CPT/HCPCS: 52000; 99212 ==

== ENCOUNTER 2024-06-29 13:51 | Outpatient (REF) | payer MEDICARE, SELFPAY ==
--- NOTE | ~2024-06-29 | US_ITS ---
EXAMINATION: US RETROPERITONEAL COMPLETE (RENAL) CLINICAL INFORMATION: Microscopic hematuria.. COMPARISON: May 30, 2023. TECHNIQUE: Real-time imaging of the kidneys and bladder using grayscale and color Doppler technique.. FINDINGS: RIGHT KIDNEY: 11 x 5 x 6 cm (SAG x AP x TRV). Volume: 148 cc. Normal echotexture. Normal renal cortical thickness. No solid or cystic lesion. Mild pelvicalyceal ectasia. Normal flow on color Doppler interrogation of the renal hilum. LEFT KIDNEY: 11 x 5 x 5 cm (SAG x AP x TRV). Volume: 164 cc. Normal echotexture. Normal renal cortical thickness. No hydronephrosis. There is a well-defined 2.7 cm anechoic lesion at the medullary region without septations or nodular components or flow on color Doppler interrogation. Normal flow on color Doppler interrogation of the renal hilum. BLADDER: Fluid-filled. Bilateral ureteral jets are demonstrated. Prevoid bladder volume is 740 mL. Postvoid bladder volume is 443 mL.. There is a 7 cm and volume: 143 cc, heterogeneous prominent prostate gland protruding upon the bladder floor. US/US retroperitoneal comp IMPRESSION: No hydronephrosis. Mild pelvicalyceal ectasia, right kidney. 2.7 cm simple cyst, left kidney. 443 cc retained fluid in a post void image. Concerning benign prostate hyperplasia in the correct clinical settings. Malignancy cannot be excluded.. Electronically signed by: Jean Garcia MD 06/30/2024 12:24 PM EDT
--- OUTSIDE RECORDS SUMMARY | 2024-06-29 16:32 | XMS_ITS ---
Author Organization [facility] Address [address] [place] [address] Care Team Providers Care Director Process Improvement Name Role Phone Vini Borges MD Primary Care Provider Anaa Navdeep Driver Unavailable [phone] REASON FOR VISIT SCREENING COLON Encounters Encounter Location Date Provider Diagnosis [facility] Outpatient [address] [place], [place] [id number] 09/26/2023 Navdeep Ken Plan Of Treatment No Information Progress Notes * ELIUD DAVISDOB:1940 ( 83 yo M)Acc No.[id number]:09/26/2023 COLON WITH MAC Patient:?ELIUD DAVIS Provider:?Navdeep Ken MD :1940???Age:83 Y???Sex:Male Gopal e:09/26/2023 [facility] Pcp:Vini Borges MD Subjective: * Chief Complaints: [...] MD Date:? 024 Generated for Juvenal graham/Drake/eTanithasmitting on:?06/29/2024 04:31 PM EDT
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
--- OUTSIDE RECORDS SUMMARY | 2024-06-29 16:32 | XMS_ITS ---
Author Organization [facility] Address [address] [place] [address] Care Team Providers Care Inside Sales Advisor Name Role Phone Vini Borges MD Primary Care Provider Unavaila Navdeep Driver Unavailable [phone] REASON FOR VISIT prior authorization Encounters Encounter Location Date Provider Diagnosis [facility] [address] [place] [address] 06/04/2023 Navdeep Ken Plan Of Treatment No Information Progress Notes * ELIUD DAVISDOB:1940 ( 82 yo M)Acc No.[id number]:06/04/2023 Patient:?ELIUD DAVIS :1940???Age:82 Y???Sex:Male Address:[address] [place], [address] * true * Date:? Generated for Carmeni santos/Drake/eTransmitting on:?06/29/2024 04:32 PM EDT
--- OUTSIDE RECORDS SUMMARY | 2024-06-29 16:32 | XMS_ITS ---
Author Organization [facility] Address [address] [place] [address] Care Team Providers Care Insulation Worker Interior Surface Name Role Phone Vini Borges MD Primary Care Provider Navdeep Steele Unavailable [phone] Allergies No Known Allergies REASON FOR VISIT [...] Status Risk Notes Problem Colon cancer screening (111260740) Colon cancer screening (Z12.11) Active confirmed Problem Pre-procedure evaluation check (082628781) Encounter for other preprocedural examination (Z01.818) Active confirmed Vital Signs Blood pressure systolic 00 mm Hg 06/04/19 24 Blood pressure diastolic 00 mm Hg 024 Height 5 ft 8 in in 06/04/2023 Weight 150 lbs 06/04/2023 BMI 22.80 kg/m2 06/04/2023 Encounters Encounter [facility] Date [facility] [address] [place] [phone] 06/04/2023 Navdeep Ken Colon cancer screeni ng [...] * ELIUD DAVISDOB:1940 ( 82 yo M)Acc No.[id number]:06/04/2023 Progress Notes Patient:?ELIUD DAVIS Provider:?Navdeep Ken MD :1940???Age:82 Y???Sex:Male Gopal e:06/04/2023 Address:[facility] [place] Pcp:Vini Borges MD Subjective: * Chief Complaints: [...] well. He describes a negative colonoscopy at [place] at approximately age 68. He enjoys a [...] MD Date:? 024 Generated for Juvenal graham/Drake/Yumiko on:?06/29/2024 04:32 PM EDT History and Physical Notes * [...] well. He describes a negative colonoscopy at [place] at approximately age 68. He enjoys a [...]
== END 2024-06-29 13:52 | disposition home or self-care (01) ==
LOC: HO.HMGCX 13:51
PROVIDERS: PCP Internal Medicine; Visit Provider Urology
DX: R31.29 Other microscopic hematuria (principal); N40.0 Benign prostatic hyperplasia without lower urinary tract symptoms; R33.9 Retention of urine, unspecified
CPT/HCPCS: 76770

== ENCOUNTER → 2024-06-29 13:57 | Outpatient (BNV) | payer MEDICARE, SELFPAY | PROVIDERS: PCP Internal Medicine; Visit Provider Radiology Diagnostic Radiology | DX: R31.29 Other microscopic hematuria (principal) | CPT/HCPCS: 76770 ==

== ENCOUNTER 2024-07-23 13:06 | Outpatient (AMB) | payer MEDICARE, SELFPAY ==
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
--- OUTSIDE RECORDS SUMMARY | 2024-07-23 13:08 | XMS_ITS ---
Author Organization [facility] Address [address] [place] [address] Care Team Providers Care Eggs Inspector Name Role Phone Vini Borges MD Primary Care Provider Anaa Navdeep Driver Unavailable [phone] REASON FOR VISIT SCREENING COLON Encounters Encounter Location Date Provider [place] [facility] [place] [address] [place], [place] [id number] 09/26/2023 Navdeep Ken Plan Of Treatment No Information Progress Notes * ELIUD DAVISDOB:1940 ( 83 yo M)Acc No.[id number]:09/26/2023 COLON WITH MAC Patient:?ELIUD DAVIS Provider:?Navdeep Ken MD :1940???Age:83 Y???Sex:Male Gopal e:09/26/2023 [facility] Pcp:Vini Borges MD Subjective: * Chief Complaints: [...] MD Date:? 024 Generated for Juvenal graham/Drake/eTanithasmitting on:?07/23/2024 01:08 PM EDT
--- OUTSIDE RECORDS SUMMARY | 2024-07-23 13:08 | XMS_ITS ---
Author Organization [facility] Address [address] [place] [address] Care Team Providers Care Senior Mobile Developer Name Role Phone Vini Borges MD Primary Care Provider Unavaila Navdeep Driver Unavailable [phone] REASON FOR VISIT prior authorization Encounters Encounter Location Date Provider Diagnosis [facility] [address] [place] [phone] 06/04/2023 Navdeep Ken Plan Of Treatment No Information Progress Notes * ELIUD DAVISDOB:1940 ( 82 yo M)Acc No.[id number]:06/04/2023 Patient:?ELIUD DAVIS :1940???Age:82 Y???Sex:Male Address:[address] [place], [address] * true * Date:? Generated for Carmeni santos/Drake/eTransmitting on:?07/23/2024 01:08 PM EDT
--- OUTSIDE RECORDS SUMMARY | 2024-07-23 13:09 | XMS_ITS ---
Author Organization [facility] Address [address] [place] [address] Care Team Providers Care Tangled Yarn Worker Name Role Phone Vini Borges MD Primary Care Provider Navdeep Steele Unavailable [phone] Allergies No Known Allergies REASON FOR VISIT [...] Status Risk Notes Problem Colon cancer screening (818504789) Colon cancer screening (Z12.11) Active confirmed Problem Pre-procedure evaluation check (447504430) Encounter for other preprocedural examination (Z01.818) Active confirmed Vital Signs Blood pressure systolic 00 mm Hg 06/04/19 24 Blood pressure diastolic 00 mm Hg 024 Height 5 ft 8 in in 06/04/2023 Weight 150 lbs 06/04/2023 BMI 22.80 kg/m2 06/04/2023 Encounters Encounter Location Date [facility] [address] [place] [phone] 06/04/2023 Navdeep Ken Colon cancer screeni ng [...] * ELIUD DAVISDOB:1940 ( 82 yo M)Acc No.[id number]:06/04/2023 Progress Notes Patient:?ELIUD DAVIS Provider:?Navdeep Ken MD :1940???Age:82 Y???Sex:Male Gopal e:06/04/2023 Address:[facility] [place] Pcp:Vini Borges MD Subjective: * Chief Complaints: [...] well. He describes a negative colonoscopy at [place] at approximately age 68. He enjoys a [...] MD Date:? 024 Generated for Juvenal graham/Drake/Yumiko on:?07/23/2024 01:08 PM EDT History and Physical Notes * [...] well. He describes a negative colonoscopy at [place] at approximately age 68. He enjoys a [...]
== END 2024-07-23 14:21 | disposition home or self-care (01) ==
LOC: HO.HUSH 13:06
PROVIDERS: PCP Internal Medicine; Visit Provider Urology
DX: N40.0 Benign prostatic hyperplasia without lower urinary tract symptoms (principal); R31.29 Other microscopic hematuria; R33.9 Retention of urine, unspecified; R82.89 Other abnormal findings on cytological and histological examination of urine
CPT/HCPCS: 99213

== ENCOUNTER 2024-09-17 07:59 | Outpatient (REF) | payer MEDICARE, SELFPAY ==
--- OUTSIDE RECORDS SUMMARY | 2023-09-26 07:30 | XMS_ITS ---
Author Organization [facility] Address [address] [place] [phone] Care Team Providers Care Service Delivery Manager Name Role Phone Vini Borges MD Primary Care Provider Navdeep Steele [phone] REASON FOR VISIT SCREENING COLON Encounters Encounter Location Date Provider Diagnosis [facility] [place] [address], [place] [phone] 09/26/2023 Navdeep Ken Plan Of Treatment No Information Progress Notes * ELIUD DAVISDOB:1940 ( 84 yo M)Acc No.[id number]:09/26/2023 COLON WITH MAC Patient: ELIUD DE LEON Provider: João Ken MD :1940 A ge:83 Y S ex:Male Date:09/26/2023 [facility] [facility] Pcp:Vini Borges MD Subjective: * Chief Complaints: * 1 . SCREENING COLON. * Medical History: Objective: * Vitals: Assessment: Plan: * Treatment: * * The named appointment provid er may or may not be the originator of this progress note, and it is not deemed complete until electronically signed by the appointment provider. Sign off status: Pending * Provider: João Ken MD Date: 09/26/2023 Generated for Juvenal graham/Drake/Rustyitting on: 09/17/2024 08:01 AM EDT
--- NOTE | ~2024-09-17 | US_ITS ---
CLINICAL HISTORY: R31.29 - Other microscopic hematuria US bladder with color Doppler Comparison: US/HI/SR - US RETROPERITONEAL COMP - 06/29/24 13:58 EDT Findings: Urinary bladder is unremarkable. Prevoid volume 255 mL. Postvoid volume 99.0 mL. Ureteral jets are visualized bilaterally Prostate measures 5.6 x 5.2 x 6.2 cm. Impression: 1. Elevated postvoid residual 2. Prostate volume 95 mL This document has been electronically signed by: Henry Jaimes MD on 09/17/2024 16:53:48
== END 2024-09-17 08:00 | disposition home or self-care (01) ==
LOC: HO.US 07:59
PROVIDERS: Visit Provider Urology
DX: R31.29 Other microscopic hematuria (principal)
CPT/HCPCS: 76857

== ENCOUNTER → 2024-09-17 08:01 | Outpatient (BNV) | payer MEDICARE, SELFPAY | PROVIDERS: Visit Provider Radiology Diagnostic Radiology | DX: N40.1 Benign prostatic hyperplasia with lower urinary tract symptoms (principal) | CPT/HCPCS: 76857 ==

== ENCOUNTER 2024-09-30 14:01 | Outpatient (REF) | payer MEDICARE, SELFPAY ==
[2024-09-30 15:27] LABS: MANUAL DIFF FLAG NO
[2024-09-30 16:11] LABS: Hematocrit 44.3 % (42.0-52.0); Hemoglobin 14.3 g/dl (14.0-18.0); Imm Gran Abs Auto 0.02 X10*3/uL (0.00-0.03); Imm Gran Pct Auto 0.2 % (0.0-0.4); Lymphocytes Absolute Auto 1.9 X10*3/uL (1.2-4.9); Mean Corpuscular HGB Conc 32.3 g/dl (31.0-36.0); Mean Corpuscular Hemoglobin 31.7 pg (27.0-33.0); Mean Corpuscular Volume 98.2 fL (80.0-98.0); NRBC Abs Auto 0.000 X10*3/uL (0.0-0.012); NRBC Pct Auto 0.0 /100WBC (0.0-0.2); Platelet Count 278 X10*3/uL (160-400); Red Blood Count 4.51 X10*6/uL (4.60-5.80); White Blood Count 8.1 X10*3/uL (4.8-10.8)
[2024-09-30 16:16] LABS: Hemoglobin A1C 137.5300 umol/L; Total Hemoglobin (HGBA1C) 3681.1688 umol/L
[2024-09-30 17:09] LABS: Alanine Aminotransferase 13 U/L (0-40); Albumin Level 4.3 g/dL (3.5-5.0); Alkaline Phosphatase 84 U/L (39-117); Anion Gap 9 (12-20); Aspartate Amino Transferase 23 U/L (5-37); Blood Urea Nitrogen 16 mg/dL (9-16); Calcium 9.2 mg/dL (8.4-10.2); Carbon Dioxide 31 mmol/L (22-29); Chloride 106 mmol/L (96-108); Estimated Glomerular Filt Rate > 60; Potassium 4.5 mmol/L (3.3-5.1); Sodium 141 mmol/L (135-145); Total Protein 7.3 g/dL (6.5-8.0)
[2024-09-30 17:17] LABS: PSA,Total (Free>4and<10) 1.37 ng/mL (0.00-4.00)
[2024-09-30 17:30] LABS: Folate 12.3 ng/mL (> or = 4.0); Vitamin B12 510 pg/mL (200-900)
== END 2024-09-30 14:02 | disposition home or self-care (01) ==
LOC: HO.LAB 14:01
PROVIDERS: Urology; PCP Internal Medicine; Visit Provider Internal Medicine
DX: I10 Essential (primary) hypertension (principal); G20.A2 Parkinson's disease without dyskinesia, with fluctuations; B35.1 Tinea unguium; N40.0 Benign prostatic hyperplasia without lower urinary tract symptoms; M23.52 Chronic instability of knee, left knee; M67.441 Ganglion, right hand; Z86.73 Personal history of transient ischemic attack (TIA), and cerebral infarction without residual deficits; Z79.899 Other long term (current) drug therapy; Z12.5 Encounter for screening for malignant neoplasm of prostate
CPT/HCPCS: 36415; 80053; 82607; 82746; 83036; 83721; 84153; 84443; 85025; 96127; 99212

== ENCOUNTER 2024-09-30 14:01 | Outpatient (AMB) | payer MEDICARE, SELFPAY ==
--- OUTSIDE RECORDS SUMMARY | 2023-09-26 07:30 | XMS_ITS ---
Author Organization [facility] Address [address] [place] [phone] Care Team Providers Care Telesales Professional Name Role Phone Katerina (RETIRED) Vini STERLING Primary Care Provide Navdeep Draper [phone] REASON FOR VISIT SCREENING COLON Encounters Encounter Location Date Provider Diagnosis [facility] [place] [address] [place] [phone] 09/26/2023 Navdeep Ken Plan Of Treatment No Information Progress Notes * ELIUD DAVISDOB:1940 ( 84 yo M)Acc No.[id number]:09/26/2023 COLON WITH MAC Patient: ELIUD DE LEON Provider: João Ken MD :1940 A ge:83 Y S ex:Male Date:09/26/2023 Address:[address] [place] [address] [facility] Pcp:Vini Borges (RETIRED )MD Subjective: * Chief Complaints: * 1 . [...] Date: 09/26/2023 Generated for Juvenal graham/Drake/Rustyitting on: 09/30/2024 02:07 PM EDT
[2024-09-30 10:08] VITALS: BP 122/80; PULSE 66; TEMP 36.2; O2SAT 99; BMI 23.4
--- NOTE | 2024-09-30 10:08 | MHC.PC.OV ---
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 CV: On enalapril 10mg daily. Blood pressure is controlled. Denies chest pain, shortness of breath Left knee instability. no pain remote injury Follows with urology bph, hematuria Continues to see urology. On dutasteride tamsulosin. Neurology: Parkinsons. On carbidopa-levodopa. Patient would like podiatry referral and oral treatment for toe nail fungus. ROS CONSTITUTIONAL: Denies weight loss, fever and chills. HEENT: Denies changes in vision and hearing. RESPIRATORY: Denies SOB and cough. CV: Denies palpitations and CP GI: Denies abdominal pain, nausea, vomiting and diarrhea. : Denies dysuria and urinary frequency. MSK: Denies new myalgia and joint pain. SKIN: see HPI NEUROLOGICAL: Denies headache PSYCHIATRIC: Denies recent changes in mood. PHYSICAL EXAM: GENERAL: Alert and oriented x 3. NAD EYES: EOMI. Anicteric. HENT: Moist mucous membranes. No scleral icterus. No cervical lymphadenopathy. LUNGS: Clear to auscultation bilaterally. CARDIOVASCULAR: Regular rate and rhythm. No murmur. No JVD. ABDOMEN: Soft, non-tender +bs EXTREMITIES: No edema. Non-tender. SKIN: No rashes or lesions. Warm. NEUROLOGIC: No focal neurological deficits. CN II-XII grossly intact PSYCHIATRIC: Cooperative. Appropriate mood and affect [facility] Family History Father No problems noted. Mother No problems noted. Social History Housing: Apartment Alcohol intake: never Patient Tobacco Use Status: Never used Tobacco e-Cigarette/Vaping Use: Never Used service: No Current occupational status: disabled Current occupation: rt hand Cognitive needs: Yes (cane) Hearing needs: No Vision needs: Yes (rx glasses) Questionnaire PHQ-9 Over the last 2 weeks, how often have you been bothered by any of the following problems? 1. Little interest or pleasure in doing things: not at all 2. Feeling down, depressed, or hopeless: several days 3. Trouble falling or staying asleep, or sleeping too much: not at all 4. Feeling tired or having little energy: not at all 5. Poor appetite or overeating: not at all 6. Feeling bad about yourself - or that you are a failure or have let yourself or your family down: not at all 7. Trouble concentrating on things, such as reading the newspaper or watching television: not at all 8. Moving or speaking so slowly that other people could have noticed. Or the opposite - being so fidgety or restless that you have been moving around a lot more than usual: not at all 9. Thoughts that you would be better off or of hurting yourself in some way: not at all Total score: 1 Depression Screening Interpretation: Negative Depression Screening Done: Yes 02625 - PHQ-9 Billing: Yes Source: Developed by Drs. Navdeep Torres, Zenia Plummer, Adis López and colleagues, with an educational milagros from [employer]. Thrive Questionnaire Date Thrive assessed: 09/30/24 I am a: Patient Within the past 12 months, did the food you bought not last and you didn't have the money to get more?: Never true Within the past 12 months, did you worry whether your food would run out before you got money to buy more?: Never true Do you have trouble paying for medicines?: No Do you have trouble getting transportation to medical appointments?: No Do you have trouble paying your heating and electricity bill?: No Do you have trouble taking care of your child, family member or friend?: No Do you have trouble with day-to-day activities such as bathing, preparing meals, shopping, managing finances, etc.?: No Are you currently unemployed and looking for a job?: No Are you interested in more education?: No THRIVE Score: 0 AUDIT C Alcohol Use Questionnaire (AUDIT-C) 1. How often do you have a drink containing alcohol?: Never 3. How often do you have six or more drinks on one occasion?: Never Total Score: 0 PHUONG-7 AMB Questionnaire PHUONG-7 Date PHUONG - 7 assessed: 09/30/24 Feeling nervous, anxious, or on edge: 0 = Not at all Not being able to stop or control worryin = Not at all Worrying too much about different things: 0 = Not at all Trouble relaxin = Not at all Being so restless that it is hard to sit still: 0 = Not at all Becoming easily annoyed or irritable: 0 = Not at all Feeling afraid as if something awful might happen: 0 = Not at all Total PHUONG-7 score (0-4 normal; 5-9 mild; 10-14 moderate; 15-21 severe): 0 Source: Developed by Drs. Navdeep Torres, Zenia Plummer, Adis López and colleagues, with an educational milagros from [employer]. Physical exam (Primary Care) Vital Signs: Last Vital Signs Temp 97.1 F 09/30/24 10:08 Pulse 66 09/30/24 10:08 BP 122/80 09/30/24 10:08 Pulse Ox 99 09/30/24 10:08 Oxygen Delivery Method Room Air 09/30/24 10:08 BMI result Body Mass Index 23.4 Tobacco/Smoking Status: Tobacco use Status Tobacco use date assessed 09/30/24 09/30/24 14:13 Patient Tobacco Use Status Never used Tobacco 09/30/24 10:11 e-Cigarette/Vaping Use Never Used 09/30/24 10:11 PHQ-9: PHQ-9 Score PHQ-9: Total score 1 09/30/24 14:41 Depression Screening Interpretation: Negative Thrive Assessment: Date of Thrive Assessment Date Thrive assessed 09/30/24 09/30/24 14:13 Coding Level of Care Code Est Pt Level 4 (22400) Diagnoses Primary hypertension I10 Hypertension type: primary hypertension Parkinson's disease with fluctuating manifestations, unspecified whether dyskinesia present G20.A2 Dyskinesia presence: unspecified whether dyskinesia Fluctuating manifestations: with fluctuating manifestations Onychomycosis B35.1 Additional Codes PHQ-9 - 50669 - PHQ-9 Billing: Yes ([id number]) Assessment & Plan Assessment & Plan (1) Hypertension: Code(s): I10 - Essential (primary) hypertension Category: Medical Qualifiers: Hypertension type: primary hypertension Qualified Code(s): I10 - Essential (primary) hypertension (2) Parkinson disease: Code(s): G20.A1 - Parkinson's disease without dyskinesia, without mention of fluctuations Category: Medical Qualifiers: Dyskinesia presence: unspecified whether dyskinesia Fluctuating manifestations: with fluctuating manifestations Qualified Code(s): G20.A2 - Parkinson's disease without dyskinesia, with fluctuations (3) Onychomycosis: Code(s): B35.1 - Tinea unguium Category: Medical Plan 84 year old for follow up Parkinsons stable HTN-blood pressure controlled on current medications To nail fungus-referral podiatry. Medications ordered. Orders: Orders LDL Cholesterol Direct 09/30/24 I10 - Essential (primary) hypertension Liver Panel 4 Weeks B35.1 - Tinea unguium Referrals Podiatry Referral B35.1 - Tinea unguium Orthopedics Referral M67.441 - Ganglion, right hand Medications: New terbinafine HCl 250 mg PO DAILY 90 tabs 3RF
== END 2024-09-30 15:19 | disposition home or self-care (01) ==
LOC: HO.HMCHD 14:02
PROVIDERS: PCP Internal Medicine; Visit Provider Internal Medicine
DX: I10 Essential (primary) hypertension (principal); G20.A2 Parkinson's disease without dyskinesia, with fluctuations; B35.1 Tinea unguium

== ENCOUNTER 2024-10-01 08:38 | Outpatient (REF) | payer MEDICARE, SELFPAY ==
--- OUTSIDE RECORDS SUMMARY | 2023-09-26 07:30 | XMS_ITS ---
Author Organization [facility] Address [address] [place] [address] Care Team Providers Care Satellite Dish Technician Name Role Phone Katerina (RETIRED) Vini STERLING Primary Care Provide Navdeep Draper [phone] REASON FOR VISIT SCREENING COLON Encounters Encounter Location Date Provider Diagnosis [facility] [place] [address] [place] [phone] 09/26/2023 Navdeep Ken Plan Of Treatment No Information Progress Notes * ELIUD DAVISDOB:1940 ( 84 yo M)Acc No.[id number]:09/26/2023 COLON WITH MAC Patient: ELIUD DE LEON Provider: João Ken MD :1940 A ge:83 Y S ex:Male Date:09/26/2023 Address:[address] [place] [address] YAYA HADDAD [facility] Pcp:Vini Borges (RETIRED )MD Subjective: * Chief [...] Date: 09/26/2023 Generated for Juvenal graham/Drake/Rustyitting on: 10/01/2024 08:48 AM EDT
== END 2024-10-01 08:39 | disposition home or self-care (01) ==
LOC: HO.LNP 08:38
PROVIDERS: Visit Provider Urology
DX: N40.1 Benign prostatic hyperplasia with lower urinary tract symptoms (principal); R31.0 Gross hematuria; R33.9 Retention of urine, unspecified; R33.8 Other retention of urine
CPT/HCPCS: 88121

== ENCOUNTER 2024-11-16 08:57 | Outpatient (AMB) | payer MEDICARE, SELFPAY ==
--- OUTSIDE RECORDS SUMMARY | 2023-09-26 07:30 | XMS_ITS ---
Author Organization [facility] Address [address] [place] [address] Care Team Providers Care Auto Parts Delivery Driver Name Role Phone Katerina (RETIRED) Vini STERLING Primary Care Provide Navdeep Draper [phone] REASON FOR VISIT SCREENING COLON Encounters Encounter Location Date Provider Diagnosis [facility] [place] [address] [place] [phone] 09/26/2023 Navdeep Ken Plan Of Treatment No Information Progress Notes * ELIUD DAVISDOB:1940 ( 84 yo M)Acc No.[id number]:09/26/2023 COLON WITH MAC Patient: ELIUD DE LEON Provider: João Kne MD :1940 A ge:83 Y S ex:Male Date:09/26/2023 Address:[address] [place] [address] DANIELITO HADDAD [facility] Pcp:Vini Borges (RETIRED )MD Subjective: * Chief [...] Date: 09/26/2023 Generated for Juvenal graham/Drake/Rustyitting on: 11/16/2024 10:12 AM EDT
--- NOTE | 2024-11-16 09:00 | A.OFFVIS_ITS ---
Vital Signs 11/16/24 09:02 Height 5 ft 8 in Weight 154 lb BMI 23.4 Intake Visit Reasons: OV-Ganglion, right hand, RT thumb Intake Note: Supa 84 yr old right hand dominant male presents today with his daughter Breanne, for his follow up visit for his right thumb IP joint osteoarthritis & right thumb IP joint mucous cyst. At his last visit with Dr Molina, patient was set to have surgery for cyst excision however patient explains his cyst burst right before surgery and was told surgery is no longer needed. Patient states his cyst is back and would like to have it surgically removed, this is causing him pain and discomfort. S/P mucous cyst excision, IP joint arthrotomy and ostephyte excision DOS: 12/26/22 [place] Name: Breanne -daughter Allergies No Known Allergies Allergy (Verified 10/01/24 13:45) HPI HPI OV-Ganglion, right hand, RT thumb: Details: Supa is an 84 year old right hand dominant Wolof speaking man who returns with concerns of a recurrent right thumb mucous cyst. He is seen today with his daughter. He complains of a recurrent mass on his right thumb IP joint, with a Hx of mucous cyst excision, IP joint arthrotomy and ostephyte excision, DOS: 12/26/22. He says this returned in ~02/2023 and he was scheduled for a repeat excision, but this ruptured & drained just prior to his DOS, and the procedure was cancelled. He says this has returned and he would like to discuss surgery. His daughter says this often drains and grows again in the same area. [facility] Family History Father No problems noted. Mother No problems noted. Social History Housing: Apartment Alcohol intake: never Patient Tobacco Use Status: Never used Tobacco e-Cigarette/Vaping Use: Never Used service: No Current occupational status: disabled Current occupation: rt hand Cognitive needs: Yes (cane) Hearing needs: No Vision needs: Yes (rx glasses) Review of Systems Const All systems reviewed & are unremarkable except as noted in HPI and below Physical Exam Vital Signs: BMI result Body Mass Index 23.4 Const General: no acute distress and alert Orientation/consciousness: patient oriented x3 Neuro General: patient oriented x3 Extrem Other: The patient is alert, oriented, and in no acute distress Neuro: Median, Ulnar, Radial nerves motor and sensory intact and sensation is normal to the tips of all digits Vascular: Cap refill brisk ROM: He can make a fist and extend all his digits Good active ROM of the thumb including the IP joint. He has a fairly large mucous cyst, measuring ~1cm in diameter across the dorsal radial aspect of his thumb between IP joint & nail He also has a wound measuring ~5mm in diameter from where this ruptured several days ago He has a second connecting cyst over the dorsal central aspect of the thumb distal phalanx, measuring ~5mm in diameter No surrounding erythema, no drainage. The area is not particularly tender. Radiographs: 3 views of the right hand from 03/18/23 were reviewed by me today in clinic. They show significant IP joint arthritis of the thumb, with near complete loss of joint space with osteophyte formation and subchondral sclerosis. Psych Appearance: grossly normal Affect: normal affect Attitude: cooperative Assessment & Plan Assessment & Plan (1) Mucous cyst of digit of right hand: Code(s): M67.441 - Ganglion, right hand Category: Medical (2) Mass of skin of right thumb: Code(s): R22.31 - Localized swelling, mass and lump, right upper limb Category: Medical (3) Osteoarthritis of right hand: Code(s): M19.041 - Primary osteoarthritis, right hand Category: Medical Plan Assessment & Plan 1 Right thumb IP joint osteoarthritis 2. Right thumb IP joint mucous cyst, recurrent S/P mucous cyst excision, IP joint arthrotomy and ostephyte excision DOS: 12/26/22 Measuring ~1cm in diameter across the dorsal radial aspect of his thumb between IP joint & nail Second connecting cyst over the dorsal central aspect of the thumb distal phalanx, measuring ~5mm in diameter I educated him and his daughter about this condition I discussed operative and non-operative treatment options He would like to proceed with surgery. Given his Hx of rupture & recurrence, he may cancel this surgery if this again ruptures prior to his DOS. I explained that an IP joint arthrodesis would be more likely to stop the progression of the cysts, however he has fairly good motion and is not interested, understandably, in an arthrodesis and I would not recommend this procedure at this time. He may cancel this procedure if he is doing well, this is not bothersome, or this ruptures again prior to surgery. The risks and benefits of operative treatment were discussed with the patient and the patient wishes to proceed with surgery. These risks include, but are not limited to risk of damage to blood vessels, nerves, tendons, infection, recurrence, incomplete relief of preoperative symptoms, persistent pain, possible need for further surgery and the risks associated with regional blocks and anesthesia. I did explain that there certainly another chance of recurrence. The plan is to take the patient to the operating room sometime in the next few weeks for the following procedures: 1. Right thumb repeat excision of mucous cyst, under local All of the preoperative paperwork including the consent was reviewed today. All the patient's questions were answered. The patient understands that they will be contacted by our electro plater soon to schedule this procedure He denies Diabetes, blood thinners, asthma, heart, lung, kidney issues He has Parkinson's disease. Scribed for Amanda Molina MD by Tj Friend, medical records field technician, on 11/16/24 at 9:20 AM, EST. Coding Level of Care Code Est Pt Level 4 (10361) Diagnoses Mucous cyst of digit of right hand M67.441 Mass of skin of right thumb R22.31 Osteoarthritis of right hand M19.041
[2024-11-16 09:02] VITALS: BMI 23.4
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
== END 2024-11-16 09:52 | disposition home or self-care (01) ==
LOC: HO.HOS 08:58
PROVIDERS: PCP Internal Medicine; Visit Provider Orthopaedic Surgery
DX: M67.441 Ganglion, right hand (principal); R22.31 Localized swelling, mass and lump, right upper limb; M19.041 Primary osteoarthritis, right hand
CPT/HCPCS: 99214

== ENCOUNTER → 2024-11-16 08:57 | Outpatient (BNVA) | payer MEDICARE, SELFPAY | PROVIDERS: PCP Internal Medicine; Visit Provider Orthopaedic Surgery | DX: M67.441 Ganglion, right hand (principal); R22.31 Localized swelling, mass and lump, right upper limb; M19.041 Primary osteoarthritis, right hand | CPT/HCPCS: 99212 ==

== ENCOUNTER 2024-12-24 13:16 | Outpatient (AMB) | payer MEDICARE, SELFPAY ==
--- OUTSIDE RECORDS SUMMARY | 2023-09-26 07:30 | XMS_ITS ---
Author Organization [facility] Address [address] [place] [phone] Care Team Providers Care System Support Developer Name Role Phone Katerina (RETIRED) Vini STERLING Primary Care Provide Navdeep Draper [phone] REASON FOR VISIT SCREENING COLON Encounters Encounter Location Date Provider Diagnosis [facility] [place] [address] [place] [phone] 09/26/2023 Navdeep Ken Plan Of Treatment No Information Progress Notes * ELIUD DAVISDOB:1940 ( 84 yo M)Acc No.[id number]:09/26/2023 COLON WITH MAC Patient: ELIUD DE LEON Provider: João Ken MD :1940 A ge:83 Y S ex:Male Date:09/26/2023 Address:[address] [place], [place] [address]CATIE HADDAD [id number] Pcp:Vini Borges (RETIRED )MD Subjective: * Chief [...] 0 09/26/2023 Generated for Juvenal graham/Drake/Rustyitting on: 1 03:56 PM EDT
--- NOTE | 2024-12-24 13:31 | MHC.OFFVIS ---
Intake Visit Reasons: cysto Intake Note: Patient is present today for a cystoscopy Urology Med:Dutasteride-Tamsulosin Antibiotic Allergy:None Blood Thinner:None Lot #: [id number] Exp08/17/27 Allergies No Known Allergies Allergy (Verified 12/24/24 13:43) HPI Comments Details: 12/24/24--Supa is an 84-year-old male who is followed for BPH and microscopic hematuria he is here for repeat office cystoscopy he has had previous urine cytology which came back with atypical cells. He is prescribed dutasteride and Flomax. Cystoscopy findings: prostatic urethra trilobar enlargement, bulbous urethra WNL, no suspicious bladder lesions visualized. History of Present Illness The patient is an 84-year-old male presenting with follow-up for Benign Prostatic Hyperplasia and microscopic hematuria. The patient has a history of Benign Prostatic Hyperplasia, which has been managed with dutasteride and Flomax. He experiences nocturia, waking up two to three times per night, which may be related to his prostate condition or medication. The patient also has a history of microscopic hematuria, with previous urine cytology showing atypical cells. There is no visible blood in the urine currently, and previous cystoscopy did not reveal any suspicious bladder lesions. The patient underwent a transurethral resection of the prostate (TURP) in the past, which was confirmed during the current cystoscopy as there was evidence of previous TUR prostate surgical changes. 30 minutes spent in review of records pertaining to this visit and including [id number] discussion with the patient and documentation of this visit. Results - Cystoscopy: Trilobar enlargement, regrowth of the prostate tissue, no suspicious bladder lesions observed - Urine Cytology: Previous results showed atypical cells Plan 1. Benign Prostatic Hyperplasia (Bph) - Continue current medications: dutasteride and Flomax - Follow-up in three months 2. Microscopic Hematuria - Repeat urine testing for cytology and FISH 07/23/24--Supa presents for telehealth fu. Pt is with his daughter who interprets for him. I have reviewed results of renal ultrasound completed 06/29/2024, kidneys essentially within normal limits 2.7 cm simple renal cysts left kidney. Prostate is enlarged and heterogeneous, estimated volume 143 mL. The patient's pre void bladder volume 740 mL, large residual postvoid bladder volume 443 mL. I have discussed that the urine that was sent for FISH analysis was not completed due to insufficient cells. I have discussed plan to continue dutasteride/Flomax, will repeat urine FISH test and follow-up office cystoscopy in 3 months. Results: Labs---PSA-09/08/23--0.63 ng/mL 06/18/24--Supa is an 83-year-old male followed for BPH and microscopic hematuria. The patient denies nicotine use however complains of prior cigarette smoke exposure due to secondhand. He is on Jaclyn 1 tablet daily. He is here with his daughter who states that Supa has been doing well in regards to urination has no complaints. The patient has had persistent microscopic hematuria. Last visit 04/02/2024-urine cytology was sent which came back with atypical cells the patient is here for office cystoscopy and we will send urine for FISH. Cystoscopy findings: Focal erythematous irregular area noted, unclear if it may be iatrogenic due to initial authorization for urine specimen. Pending urine FISH results will determine plan for further conservative monitoring versus bladder biopsy. 04/02/24--Supa is an 83-year-old male followed for BPH and microscopic hematuria. He is on Jaclyn 1 tablet daily. He is here with his daughter who states that Supa has been doing well in regards to urination has no complaints. Bladder scan PVR today is elevated. Urinalysis persistent microscopic hematuria. Plan urine cytology, re-evaluate urinary tract with ultrasound. Cont Jaclyn. 06/27/23--Supa is an 82-year-old male who presents today to the office for a follow-up, hematuria and BPH. Also prior CT imaging noted a 3 mm right kidney stone. He had renal ultrasound done. I reviewed results. Bilateral renal cysts, no renal calculi noted. The patient is on Jeanine for BPH symptoms. He is is voiding without difficulty he denies dysuria. Urinalysis-blood 1+. Will send urine for cytology. --plan discussed will continue Jaclyn, continue to monitor kidneys. Follow-up 9 months check urinalysis and BPH symptoms at that time 12/26/22?He is followed today for hematuria. He prior cysto, 01/2022 which was wnL, Jaclyn was started at that time. He was last seen by me on 06/13/22 for BPH. He is presents with his daughter. He states that he gets up 3 times at night to urinate. He denies any dysuria, or gross hematuria. The patient has been compliant with his meds daily Jaclyn 04 mg. In review of his chart he does have right kidney stone 3 mm noted on prior CAT scan imaging. I have discussed AUA guidelines recommendations for PSA screening. Plan discussed Continue jayln, Monitor right kidney stone. Renal US in 6 months. I reviewed the PSA results from 11/14/22 revealed 1.48. 06/13/22--JEFFRY: Prostate exam: Prostate was enlarged, no hard, irregular areas palpated.? office cystoscopy on 02/05/22 which was negative for suspicious bladder lesion.? [facility] Family History Father No problems noted. Mother No problems noted. Social History Housing: Apartment Alcohol intake: never Patient Tobacco Use Status: Never used Tobacco e-Cigarette/Vaping Use: Never Used service: No Current occupational status: disabled Current occupation: rt hand Cognitive needs: Yes (cane) Hearing needs: No Vision needs: Yes (rx glasses) Office Procedures Cystoscopy Consent Discussed risk and benefit or proposed procedure with the patient. Information consent for procedure given to the patient. Discussed technical aspects, risks, benefits and alternatives in full. Addressed all of the patient's questions and concerns regarding the procedure. The patient demonstrated knowledge and understanding. They wish to proceed with this procedure. Preparation The patient was prepped in the usual manner. A network services project manager was present and in the room. Genitalia was prepped with betadine solution in a sterile manner. Lidocaine Jelly 2% was placed into the urethra and 16Fr flexible Olympus cystoscope was inserted into the meatus after adequate lubrication. Procedure Time out per protocol performed. The flexible cystoscope is passed transurethrally: The bladder was inspected in its entirety with utilization retroflexion displaying: Tumor(s): no suspicious bladder lesions visualized Trabeculation: Moderate with cellule changes Mucosal Erthema: Orifices: normal shape and position Urethra: normal Cystoscopy findings: prostatic urethra trilobar enlargement, bulbous urethraWNL, no suspicious bladder lesions visualized [id number] DISPOSABLE SCOPE URO-G FLEXIBLE SCOPE Procedure code (CPT) selection complete Office Meds lidocaine HCl 2 % mucosal jelly in applicator Performing Provider: Eliezer Garcia MD Performing Location: [facility] [facility] Administered by: Carley Zamorano RN on 12/24/24 14:03 Dose Route Admin Location Dispensed Lot Number Expiration Date NDC Artificial Pearl Maker 20 mL intra-urethral 20 mL ciprofloxacin HCl 500 mg tablet Performing Provider: Eliezer Garcia MD Performing Location: [facility] [facility] Administered by: Carley Zamorano RN on 12/24/24 14:03 Dose Route Admin Location Dispensed Lot Number Expiration Date NDC Artificial Pearl Maker 500 mg PO 1 tab phenazopyridine 200 mg tablet Performing Provider: Eliezer Garcia MD Performing Location: [facility] Administered by: Carley Zamorano RN on 12/24/24 14:03 Dose Route Admin Location Dispensed Lot Number Expiration Date NDC Artificial Pearl Maker 200 mg PO 1 tab Results AMB Urinalysis, Automated UA Leukoctes 0 Sage/uL Last Edit by Oliva Eastman on 12/24/24 17:00 UA Nitrite Negative Last Edit by Oliva Eastman on 12/24/24 17:00 UA Urobilinogen 0.2 mg/dL Last Edit by Oliva Eastman on 12/24/24 17:00 UA Protein 0 mg/dL Last Edit by Oliva Eastman on 12/24/24 17:00 UA pH 6.0 Last Edit by Oliva Eastman on 12/24/24 17:00 UA Blood 25 Hector/uL Last Edit by Oliva Eastman on 12/24/24 17:00 UA Specific [place] 1.010 Last Edit by Oliva Eastman on 12/24/24 17:00 UA Ketone Negative Last Edit by Oliva Eastman on 12/24/24 17:00 UA Bilirubin 0 mg/dL Last Edit by Oliva Eastman on 12/24/24 17:00 UA Glucose 0 mg/dL Last Edit by Oliva Eastman on 12/24/24 17:00 Results Reviewed Results Reviewed: Laboratory Last Values Urine pH (Auto) 6.0 12/24/24 15:56 Specific [place] (Auto) 1.010 12/24/24 15:56 Urine Protein (Auto) 0 mg/dL 12/24/24 15:56 Glucose (UA)(Auto) 0 mg/dL 12/24/24 15:56 Urine Ketones (Auto) Negative 12/24/24 15:56 Urine Blood (Auto) 25 Hector/uL 12/24/24 15:56 Urine Nitrite (Auto) Negative 12/24/24 15:56 Urine Bilirubin (Auto) 0 mg/dL 12/24/24 15:56 Urine Urobilinogen (Auto) 0.2 mg/dL 12/24/24 15:56 Leukocyte Esterase (Auto) 0 Sage/uL 12/24/24 15:56 Assessment & Plan Assessment & Plan (1) BPH (benign prostatic hyperplasia): Code(s): N40.0 - Benign prostatic hyperplasia without lower urinary tract symptoms Category: Medical (2) Microscopic hematuria: Code(s): R31.29 - Other microscopic hematuria Category: Medical (3) Incomplete bladder emptying: Code(s): R33.9 - Retention of urine, unspecified Category: Medical (4) Abnormal urine cytology: Code(s): R82.89 - Other abnormal findings on cytological and histological examination of urine Category: Medical (5) Nocturia more than twice per night: Code(s): R35.1 - Nocturia Category: Medical Plan Plan 1. Benign Prostatic Hyperplasia (Bph) - Continue current medications: dutasteride and Flomax - Follow-up in three months 2. Microscopic Hematuria - Repeat urine testing for cytology and FISH Orders: Orders AMB Cystoscopy 12/24/24 R31.0 - Gross hematuria Urine Cytology 12/24/24 R31.29 - Other microscopic hematuria FISH Bladder Cancer 12/24/24 R31.29 - Other microscopic hematuria AMB Urinalysis Automated 12/24/24 R31.29 - Other microscopic hematuria Patient Instructions: The patient had an opportunity to ask questions regarding treatment plan. The patient expressed understanding and agreement with the above treatment plan. The patient is aware they should contact our office by phone for worsening of their current condition or the appearance of new symptoms. Compliance is encouraged with any medications and followup testing that is ordered. It is a privilege to be allowed the opportunity to participate in the urologic care of your patient. If you have any questions or concerns regarding treatment for the above conditions please do not hesitate to contact me. The office telephone contact is [phone]. This note is constructed in part using voice recognition software. While every effort has been made to ensure accuracy housing management representative errors may have been included. Yours sincerely, Eliezer Garcia MD Scribe Plan - Not visible on output: Patient was informed and verbally consented to the use of an ambient scribe for clinic note documentation during this visit. Coding Level of Care Code Est Pt Level 4 (40891) Complex EM visit Add On G2211 Diagnoses BPH (benign prostatic hyperplasia) N40.0 Microscopic hematuria R31.29 Incomplete bladder emptying R33.9 Abnormal urine cytology R82.89 Nocturia more than twice per night R35.1 CPT Codes Cystoscopy - CPT: 43144-[id number] ([id number])
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
== END 2024-12-24 14:38 | disposition home or self-care (01) ==
LOC: HO.HUSH 13:16
PROVIDERS: PCP Internal Medicine; Visit Provider Urology
DX: R31.0 Gross hematuria (principal); R31.29 Other microscopic hematuria
CPT/HCPCS: 52000

== ENCOUNTER 2024-12-24 13:16 | Outpatient (REF) | payer MEDICARE, SELFPAY | END 2024-12-24 13:17 | disposition home or self-care (01) | LOC: HO.LAB 13:16 | PROVIDERS: PCP Internal Medicine; Visit Provider Urology | DX: N40.1 Benign prostatic hyperplasia with lower urinary tract symptoms (principal); R35.1 Nocturia; R31.29 Other microscopic hematuria; R33.9 Retention of urine, unspecified; R82.89 Other abnormal findings on cytological and histological examination of urine | CPT/HCPCS: 52000; 81003; 88112; 88121; 99212 ==

== ENCOUNTER 2025-02-10 15:50 | Outpatient (AMB) | payer MEDICARE, SELFPAY ==
--- OUTSIDE RECORDS SUMMARY | 2023-09-26 06:30 | XMS_ITS ---
Author Organization [facility] Address [address] [place] [phone] Care Team Providers Care Electro Tech Name Role Phone Katerina (RETIRED) Vini STERLING Primary Care Provide Navdeep Draper [phone] REASON FOR VISIT SCREENING COLON Encounters Encounter Location Date Provider Diagnosis [facility] [place] [address] [place] [id number] 09/26/2023 Navdeep Ken Plan Of Treatment No Information Progress Notes * ELIUD DAVISDOB:1940 ( 84 yo M)Acc No.[id number]:09/26/2023 COLON WITH MAC Patient: ELIUD DE LEON Provider: João Ken MD :1940 A ge:83 Y S ex:Male Date:09/26/2023 Address:[address] [place], [place] [address] YAYA HADDAD [facility] Pcp:Vini Borges (RETIRED )MD Subjective: * Chief Complaints: * S CREENING COLON * The named appointment provid er may or may not be the originator of this progress note, and it is not deemed complete until electronically signed by the appointment provider. Sign off status: Pending * Provider: João Ken MD Date: 0 09/26/2023 Generated for Juvenal graham/Drake/Rustyitting on: 04/13/2024 09:57 PM EST
--- NOTE | 2025-02-10 16:16 | A.OFFVIS_ITS ---
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 He was doing okay. He was taking carbidopa-levodopa 25-100mg four times a day. No significant tremor. No difficulty eating, drinking, or swallowing. Balance was off and unsteady at times, but no falls. No difficulty turning in bed or getting up from chair. Sleep was okay. Mood was okay. [facility] Family History Father No problems noted. Mother No problems noted. Social History Housing: Apartment Alcohol intake: never Patient Tobacco Use Status: Never used Tobacco e-Cigarette/Vaping Use: Never Used service: No Current occupational status: disabled Current occupation: rt hand Cognitive needs: Yes (cane) Hearing needs: No Vision needs: Yes (rx glasses) Review of Systems Const Denies chills, Denies daytime sleepiness, Denies difficulty sleeping, Denies fatigue, Denies fever(s), Denies frequent falls, Denies headache(s), Denies increased appetite, Denies poor appetite, Denies snoring, Denies weakness, Denies weight gain and Denies weight loss Eyes Denies loss of vision ENT Denies vertigo, Denies dizziness and Denies headache(s) Card Denies chest pain at rest, Denies chest pain with activity, Denies syncope, Denies leg edema and Denies palpitations Resp Denies snoring GI Denies constipation, Denies heartburn, Denies diarrhea and Denies nausea Denies urinary frequency, Denies urinary incontinence and Denies urinary urgency Musc Denies abnormal gait, Denies numbness and Denies tingling Skin/Breast Denies dry skin and Denies rash Neuro Denies abnormal gait, Denies vertigo, Denies dizziness, Denies syncope, Denies frequent falls, Denies headache(s), Denies lack of coordination, Denies loss of vision, Denies memory loss, Denies numbness, Denies restless legs, Denies seizure-like activity, Denies tingling, Denies paresthesias, Reports tremor(s) and Denies weakness Psych Denies anxiety, Denies depression, Denies auditory hallucinations, Denies memory loss, Denies visual hallucinations and Denies suicidal ideation Endo Denies fatigue and Denies palpitations Physical Exam Const Other: General Appearance:? normal, in no acute distress. Skin:? no rashes, no significant birthmarks. Heart:? S1, S2 normal, no murmurs. Lungs:? clear anteriorly and posteriorly. Extremities:? no edema. Psych:? alert, oriented, cognitive function intact, cooperative with exam. Neuro Other: Mental Status:?Normal attention, orientation, memory and affect.? Cranial Nerves:?Pupils are equal, round and reactive to light. External occular muscles are intact. Visual ferrer are full. Face is symmetrical. Facial sensations are normal. Tongue is midline. Palate elevates symmetrically. Shoulder shrugging is normal. Hearing to bedside conversation is normal. Coordination:?No ataxia,?no titubation.? Gait Exam: Forward leaning posture with decreased arm swing, R > L. Extrapyramidal System:?Slightly decreased facial expressions, forward leaning posture with decreased arm swing R > L, mild cogwheeling bilaterally. Pronator Drift:?Not present.? Involuntary Movements:?No rest tremor noted today. Speech:?Normal.? Results Reviewed Results Reviewed: [place] [facility]: mod to sev cerebellar atrophy, mild diff cerebral atrophy, mod MVD, a few distinct lesions, probably embolic infarcts [place] [facility] [place]: WNL [place] [facility] [place]: WNL. Assessment & Plan Assessment & Plan (1) Parkinsonism: Code(s): G20.C - Parkinsonism, unspecified Category: Medical Qualifiers: Parkinsonism type: unspecified Qualified Code(s): G20.C - Parkinsonism, unspecified Plan: Continue carbidopa-levodopa 25-100mg 1 tablet four times a day. Follow up in 6 months or sooner as needed. (2) Multifactorial gait disorder: Code(s): R26.89 - Other abnormalities of gait and mobility Category: Medical Plan: Consider using cane for additional support. (3) Peripheral neuropathy: Code(s): G62.9 - Polyneuropathy, unspecified Category: Medical Qualifiers: Peripheral neuropathy type: polyneuropathy, unspecified Qualified Code(s): G62.9 - Polyneuropathy, unspecified (4) Cerebellar atrophy: Code(s): G31.9 - Degenerative disease of nervous system, unspecified Category: Medical (5) Cerebral microvascular disease: Code(s): I67.89 - Other cerebrovascular disease Category: Medical (6) History of embolic stroke: Code(s): Z86.73 - Personal history of transient ischemic attack (TIA), and cerebral infarction without residual deficits Category: Medical Plan . Coding Level of Care Code Est Pt Level 4 (73387) Diagnoses Parkinsonism, unspecified Parkinsonism type G20.C Parkinsonism type: unspecified Multifactorial gait disorder R26.89 Peripheral polyneuropathy G62.9 Peripheral neuropathy type: polyneuropathy, unspecified Cerebellar atrophy G31.9 Cerebral microvascular disease I67.89 History of embolic stroke Z86.73
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
== END 2025-02-10 16:26 | disposition home or self-care (01) ==
LOC: HO.HSM 15:51
PROVIDERS: PCP Internal Medicine; Referring Provider Internal Medicine; Visit Provider Registered Nurse
DX: G20.C Parkinsonism, unspecified (principal); R26.89 Other abnormalities of gait and mobility; G62.9 Polyneuropathy, unspecified; G31.9 Degenerative disease of nervous system, unspecified; I67.89 Other cerebrovascular disease; Z86.73 Personal history of transient ischemic attack (TIA), and cerebral infarction without residual deficits
CPT/HCPCS: 99214

== ENCOUNTER → 2025-02-10 15:50 | Outpatient (BNVA) | payer MEDICARE, SELFPAY | PROVIDERS: PCP Internal Medicine; Referring Provider Internal Medicine; Visit Provider Registered Nurse | DX: I67.89 Other cerebrovascular disease (principal); G20.C Parkinsonism, unspecified; R26.89 Other abnormalities of gait and mobility; G62.9 Polyneuropathy, unspecified; G31.9 Degenerative disease of nervous system, unspecified; Z86.73 Personal history of transient ischemic attack (TIA), and cerebral infarction without residual deficits | CPT/HCPCS: 99212 ==

== ENCOUNTER 2025-02-11 11:14 | Outpatient (REF) | payer MEDICARE, SELFPAY ==
[2025-02-11 12:16] LABS: Alanine Aminotransferase 10 U/L (0-40); Albumin Level 4.3 g/dL (3.5-5.0); Alkaline Phosphatase 96 U/L (39-117); Aspartate Amino Transferase 23 U/L (5-37); Total Protein 7.2 g/dL (6.5-8.0)
== END 2025-02-11 11:15 | disposition home or self-care (01) ==
LOC: HO.LAB 11:14
PROVIDERS: PCP Internal Medicine; Visit Provider Internal Medicine
DX: B35.1 Tinea unguium (principal)
CPT/HCPCS: 36415; 80076

== ENCOUNTER 2025-02-18 10:03 | Outpatient (AMB) | payer MEDICARE, SELFPAY ==
--- NOTE | 2025-02-18 10:21 | MHC.PC.OV ---
Vital Signs 02/18/25 10:23 Height 5 ft 8 in Weight 152 lb 2 oz BMI 23.1 BP 134/62 Blood Pressure Location Lt brachial Position Sitting Respiration 14 Pulse 66 Pulse Source Pulse Oximeter Pulse Oximetry (%) 99 Intake Visit Reasons: 4 month follow-up Intake Note: Follow up Pediatric Speech Therapist Required: No Allergies No Known Allergies Allergy (Verified 02/18/25 10:22) Tobacco use date assessed: 02/18/25 Fall risk assessment: 1 Fall in past year Last assessed Fall Risk: 02/18/25 Dental Screening Dental Screen Date: 05/21/24 HPI HPI Comments History of Present Illness Details 84 year old male with a past medical history of hypertension, BPH, parkinsons, history of CVA presenting for follow up. CV: On enalapril 10mg daily. Blood pressure is controlled. Denies chest pain, shortness of breath Left knee instability. no pain remote injury Follows with urology bph, hematuria. On dutasteride tamsulosin. Neurology: Parkinsons. On carbidopa-levodopa. [place] with [facility] [place] seen by podiatry. On oral lamisil. LFTs stable. Improving ROS CONSTITUTIONAL: Denies weight loss, fever and chills. HEENT: Denies changes in vision and hearing. RESPIRATORY: Denies SOB and cough. CV: Denies palpitations and CP GI: Denies abdominal pain, nausea, vomiting and diarrhea. : Denies dysuria and urinary frequency. MSK: Denies new myalgia and joint pain. SKIN: see HPI NEUROLOGICAL: Denies headache PSYCHIATRIC: Denies recent changes in mood. PHYSICAL EXAM: GENERAL: Alert and oriented x 3. NAD EYES: EOMI. Anicteric. HENT: Moist mucous membranes. No scleral icterus. No cervical lymphadenopathy. LUNGS: Clear to auscultation bilaterally. CARDIOVASCULAR: Regular rate and rhythm. No murmur. No JVD. ABDOMEN: Soft, non-tender +bs EXTREMITIES: No edema. Non-tender. SKIN: No rashes or lesions. Warm. NEUROLOGIC: No focal neurological deficits. CN II-XII grossly intact PSYCHIATRIC: Cooperative. Appropriate mood and affect [facility] Family History Father No problems noted. Mother No problems noted. Social History Housing: Apartment Alcohol intake: never Patient Tobacco Use Status: Never used Tobacco e-Cigarette/Vaping Use: Never Used service: No Current occupational status: disabled Current occupation: rt hand Cognitive needs: Yes (cane) Hearing needs: No Vision needs: Yes (rx glasses) Questionnaire PHQ-9 Over the last 2 weeks, how often have you been bothered by any of the following problems? 1. Little interest or pleasure in doing things: not at all 2. Feeling down, depressed, or hopeless: not at all 3. Trouble falling or staying asleep, or sleeping too much: not at all 4. Feeling tired or having little energy: several days 5. Poor appetite or overeating: not at all 6. Feeling bad about yourself - or that you are a failure or have let yourself or your family down: several days 7. Trouble concentrating on things, such as reading the newspaper or watching television: several days 8. Moving or speaking so slowly that other people could have noticed. Or the opposite - being so fidgety or restless that you have been moving around a lot more than usual: more than half the days 9. Thoughts that you would be better off or of hurting yourself in some way: not at all Total score: 5 Depression Screening Interpretation: Positive Depression Screening Follow-up: Existing condition Depression Screening Done: Yes 63288 - PHQ-9 Billing: Yes Source: Developed by Drs. Navdeep Torres, Zenia Plummer, Adis López and colleagues, with an educational milagros from [employer]. Thrive Questionnaire Date Thrive assessed: 02/12/25 I am a: Parent/Caregiver What is your living situation today?: I have a steady place to live Within the past 12 months, did the food you bought not last and you didn't have the money to get more?: Never true Within the past 12 months, did you worry whether your food would run out before you got money to buy more?: Never true Do you have trouble paying for medicines?: No Do you have trouble getting transportation to medical appointments?: No Do you have trouble paying your heating and electricity bill?: No Do you have trouble taking care of your child, family member or friend?: No Do you have trouble with day-to-day activities such as bathing, preparing meals, shopping, managing finances, etc.?: No Are you currently unemployed and looking for a job?: No Are you interested in more education?: No Please select the resources that you would like help with: Care for elder or disabled Currently or been in a relationship where the following occur: No concerns reported THRIVE Score: 0 AUDIT C Alcohol Use Questionnaire (AUDIT-C) 1. How often do you have a drink containing alcohol?: Never 3. How often do you have six or more drinks on one occasion?: Never Total Score: 0 PHUONG-7 AMB Questionnaire PHUONG-7 Date PHUONG - 7 assessed: 09/30/24 Feeling nervous, anxious, or on edge: 2 = More than half the days Not being able to stop or control worryin = Several days Worrying too much about different things: 1 = Several days Trouble relaxin = Several days Being so restless that it is hard to sit still: 0 = Not at all Becoming easily annoyed or irritable: 1 = Several days Feeling afraid as if something awful might happen: 1 = Several days Total PHUONG-7 score (0-4 normal; 5-9 mild; 10-14 moderate; 15-21 severe): 7 Source: Developed by Drs. Navdeep Torres, Zenia Plummer, Adis López and colleagues, with an educational milagros from [employer]. Physical exam (Primary Care) Vital Signs: Last Vital Signs Pulse 66 02/18/25 10:23 Resp 14 02/18/25 10:23 BP 134/62 02/18/25 10:23 Pulse Ox 99 02/18/25 10:23 BMI result Body Mass Index 23.1 Tobacco/Smoking Status: Tobacco use Status Tobacco use date assessed 02/18/25 02/18/25 10:28 Patient Tobacco Use Status Never used Tobacco 02/18/25 10:28 e-Cigarette/Vaping Use Never Used 02/18/25 10:28 PHQ-9: PHQ-9 Score PHQ-9: Total score 5 02/18/25 10:34 Depression Screening Interpretation: Positive Depression Screening Follow-up: Existing condition Thrive Assessment: Date of Thrive Assessment Date Thrive assessed 02/12/25 02/18/25 10:28 Currently or been in a relationship where the following occur: No concerns reported Coding Level of Care Code Est Pt Level 4 (04153) Diagnoses Primary hypertension I10 Hypertension type: primary hypertension Abnormal urine cytology R82.89 Mucous cyst of digit of right hand M67.441 Parkinson's disease with fluctuating manifestations, unspecified whether dyskinesia present G20.A2 Dyskinesia presence: unspecified whether dyskinesia Fluctuating manifestations: with fluctuating manifestations Additional Codes PHQ-9 - 42168 - PHQ-9 Billing: Yes ([id number]) Assessment & Plan Assessment & Plan (1) Hypertension: Code(s): I10 - Essential (primary) hypertension Category: Medical Qualifiers: Hypertension type: primary hypertension Qualified Code(s): I10 - Essential (primary) hypertension (2) Abnormal urine cytology: Code(s): R82.89 - Other abnormal findings on cytological and histological examination of urine Category: Medical (3) Mucous cyst of digit of right hand: Code(s): M67.441 - Ganglion, right hand Category: Medical (4) Parkinson disease: Code(s): G20.A1 - Parkinson's disease without dyskinesia, without mention of fluctuations Category: Medical Qualifiers: Dyskinesia presence: unspecified whether dyskinesia Fluctuating manifestations: with fluctuating manifestations Qualified Code(s): G20.A2 - Parkinson's disease without dyskinesia, with fluctuations Plan 84 year old male presenting for follow up Parkinson is stable BPH/atypical urine cytology-continue follow up with urology HTN-low salt diet. BP controlled on enalapril Onychomycosis Orders: Orders Comprehensive Met. Panel 3 Months G20.A2 - Parkinson's disease without dyskinesia, with fluctuations, I10 - Essential (primary) hypertension, N40.0 - Benign prostatic hyperplasia without lower urinary tract symptoms, R31.29 - Other microscopic hematuria, R82.89 - Other abnormal findings on cytological and histological examination of urine Microalbumin, Random (w Creat) 3 Months G20.A2 - Parkinson's disease without dyskinesia, with fluctuations, I10 - Essential (primary) hypertension, N40.0 - Benign prostatic hyperplasia without lower urinary tract symptoms, R31.29 - Other microscopic hematuria, R82.89 - Other abnormal findings on cytological and histological examination of urine Complete Blood Count Auto Diff 3 Months G20.A2 - Parkinson's disease without dyskinesia, with fluctuations, I10 - Essential (primary) hypertension, N40.0 - Benign prostatic hyperplasia without lower urinary tract symptoms, R31.29 - Other microscopic hematuria, R82.89 - Other abnormal findings on cytological and histological examination of urine Lipid Panel 3 Months G20.A2 - Parkinson's disease without dyskinesia, with fluctuations, I10 - Essential (primary) hypertension, N40.0 - Benign prostatic hyperplasia without lower urinary tract symptoms, R31.29 - Other microscopic hematuria, R82.89 - Other abnormal findings on cytological and histological examination of urine Hemoglobin A1c 3 Months G20.A2 - Parkinson's disease without dyskinesia, with fluctuations, I10 - Essential (primary) hypertension, N40.0 - Benign prostatic hyperplasia without lower urinary tract symptoms, R31.29 - Other microscopic hematuria, R82.89 - Other abnormal findings on cytological and histological examination of urine Medications: Refilled enalapril maleate 10 mg PO DAILY 90 tabs 1RF dutasteride-tamsulosin 0.5-0.4 mg ER (Jaclyn) 1 cap PO DAILY 90 caps 3RF
[2025-02-18 10:23] VITALS: BP 134/62; PULSE 66; RESP 14; O2SAT 99; BMI 23.1
== END 2025-02-18 10:52 | disposition home or self-care (01) ==
LOC: HO.HMCFM 10:03
PROVIDERS: PCP Internal Medicine; Visit Provider Internal Medicine
DX: I10 Essential (primary) hypertension (principal); R82.89 Other abnormal findings on cytological and histological examination of urine; M67.441 Ganglion, right hand; G20.A2 Parkinson's disease without dyskinesia, with fluctuations

== ENCOUNTER → 2025-02-18 10:03 | Outpatient (BNVA) | payer MEDICARE, SELFPAY | PROVIDERS: PCP Internal Medicine; Visit Provider Internal Medicine | DX: I10 Essential (primary) hypertension (principal); Z13.31 Encounter for screening for depression; R82.89 Other abnormal findings on cytological and histological examination of urine; M67.441 Ganglion, right hand; G20.A2 Parkinson's disease without dyskinesia, with fluctuations | CPT/HCPCS: 96127; 99212 ==